=== PATIENT | male | born 1945 | race Caucasian/White ===

== ENCOUNTER 2020-06-18 16:27 | Observation (INO) | payer MEDICARE, OTHER, SELFPAY ==
--- NOTE | 2020-06-18 09:40 | PC.NURSE ---
Pt states pain is 6 all the time, he stated did not want pain medicine
[2020-06-18 17:14] VITALS: BP 135/80; PULSE 61; RESP 18; TEMP 36.5; O2SAT 97; BMI 28.5
--- NOTE | 2020-06-18 17:31 | ECG_ITS ---
APPROVED REPORT Exam: Resting ECG HR:66 bpm ECG Measurements Heart Rate 66 AXES VA 126 P QRSd 140 QRS 88 QT 418 T 57 QTc 438 Conclusion Sinus rhythm with marked sinus arrhythmia in a pattern of bigeminy Right bundle branch block Abnormal ECG Electronically signed by : Gene Gutiérrez, 06/19/2020 13:15:53
[2020-06-18 17:40] LABS: Adenovirus,PCR Not Detected (NotDetected); Bordetella Pertussis Not Detected (NotDetected); Chlamydophila Pneumoniae, PCR Not Detected (NotDetected); Coronavirus 19, PCR Not Detected (NotDetected); Coronavirus 229E Not Detected (NotDetected); Coronavirus NL63 Not Detected (NotDetected); Coronavirus OC43 Not Detected (NotDetected); Coronovirus HKU1,PCR Not Detected (NotDetected); Human Metapneumovirus Not Detected (NotDetected); Influenza A, PCR Not Detected (NotDetected); Influenza AH1, 2009 Not Detected (NotDetected); Influenza AH1, PCR Not Detected (NotDetected); Influenza AH3,PCR Not Detected (NotDetected); Influenza B, PCR Not Detected (NotDetected); Mycoplasma Pneumoniae, PCR Not Detected (NotDetected); Parainfluenza 1, PCR Not Detected (NotDetected); Parainfluenza 2, PCR Not Detected (NotDetected); Parainfluenza 3, PCR Not Detected (NotDetected); Parainfluenza 4, PCR Not Detected (NotDetected); Respiratory Syncytial Virus Not Detected (NotDetected); Rhinovirus/Enterovirus Not Detected (NotDetected)
[2020-06-18 18:09] VITALS: O2SAT 97
--- NOTE | 2020-06-18 18:09 | XR_ITS ---
PROCEDURE: XR CHEST 2V CLINICAL HISTORY: cough COMPARISON: No exams were available for comparison FINDINGS: The cardiomediastinal silhouette and pulmonary vascularity are within normal limits. Right hemidiaphragm is elevated with patchy density in the right lung base which may be related atelectasis or patchy infiltrate. Multiple old left rib fractures. Degenerative changes of the shoulders with postsurgical change of the right shoulder. Bilateral subacromial stenosis. Degenerative changes lumbar spine with ankylosis. Coronary artery stent noted. IMPRESSION: Elevated right hemidiaphragm with right basilar atelectasis and or infiltrate Dictated by: Misha Oreilly MD 06/19/2020 05:38 Misha Oreilly MD in [place] 06/19/2020 05:38
--- NOTE | 2020-06-18 18:09 | XR_ITS ---
PROCEDURE: XR THORACIC SPINE 2V CLINICAL INDICATION: back pain post fall COMPARISON: No exams were available for comparison FINDINGS: Minimal midthoracic curvature convex right. Ankylosis of the mid lower thoracic spine. Moderate patient rotation on the lateral view. There is minimal loss of height of T6 and T7 anteriorly which could be chronic. No obvious fracture or dislocation. Other findings:None. IMPRESSION: Degenerative change, no definite acute finding. Minimal loss of height of T6 and T7 which may be chronic. If pain persists, CT or MRI may provide further evaluation. Dictated by: Misha Oreilly MD 06/19/2020 05:41 Misha Oreilly MD in [place] 06/19/2020 05:41
--- NOTE | 2020-06-18 18:09 | XR_ITS ---
PROCEDURE: XR LUMBAR SPINE 2-3V CLINICAL INDICATION: back pain post fall Low back pain COMPARISON: No exams were available for comparison FINDINGS: Mild lumbar curvature convex right. The lateral view is moderately rotated. Multilevel degenerative disc disease is present with endplate osteophytes. No obvious fracture however, subtle fractures may not be visualized with this technique. Consider follow-up if pain persists. There are multiple injection granulomas along the left iliac area. IMPRESSION: Lumbar spondylosis with scoliosis. No obvious fracture however exam is limited secondary to positioning. Consider follow-up if pain persist. Dictated by: Misha Oreilly MD 06/19/2020 05:36 Misha Oreilly MD in [place] 06/19/2020 05:36
--- NOTE | 2020-06-18 18:16 | XR_ITS ---
PROCEDURE: XR HIP RT 2-3V W/PELVIS CLINICAL INDICATION: PAIN Injury with pain COMPARISON: CR XR HIP LT 2-3V W/PELVIS from 06/18/2020 FINDINGS: There are mild osteoarthritic changes. No acute fracture or dislocation. No lytic or blastic change. There is vascular calcification. Multiple small calcific densities overlie the left hip consistent with injection granulomas. Mild degenerative change right SI joint. IMPRESSION: No acute findings. Dictated by: Misha Oreilly MD 06/19/2020 05:53 Msiha Oreilly MD in [place] 06/19/2020 05:53
[2020-06-18 18:24] LABS: Basophils # 0.1 K/mm3 (0-0.2); Basophils % 0.9 % (0.1-2.0); Eosinophils # 0.1 K/mm3 (0.0-0.4); Eosinophils % 2.1 % (0.1-12.0); Hematocrit 48.7 % (42.0-52.0); Hemoglobin 16.5 g/dL (14.1-18.0); Lymphocytes # 1.1 K/mm3 (0.7-4.5); Lymphocytes % 18.9 % (10-50); Mean Corpuscular Hemoglobin 31.7 pg (27.0-31.2); Mean Corpuscular Volume 93.3 fl (80-94); Mean Platelet Volume 8.1 fl (7.4-10.4); Monocytes # 0.4 K/mm3 (0.1-1.0); Neutrophils # 4.2 K/mm3 (1.8-7.8); Platelet Count 127 K/mm3 (142-424); Red Blood Count 5.22 M/mm3 (4.60-6.20); Red Cell Distribution Width 14.8 % (11.5-17.5); White Blood Count 5.9 K/mm3 (4.8-10.8)
[2020-06-18 18:25] LABS: Chloride 103 mmol/L (98-107); Potassium 4.4 mmoL/L (3.5-5.1); Sodium 137 mmol/L (136-145)
[2020-06-18 18:27] LABS: Blood Urea Nitrogen 24 mg/dl (9-20); Creatinine Clearance Estimated 59 mL/min (50-200); Estimated Glomerular Filt Rate 46 ml/min (>60); GFR (African American) 55 ML/MIN (>60)
[2020-06-18 18:28] LABS: Alanine Aminotransferase 17 U/L (12-78); Albumin Level 4.8 g/dl (3.5-5.0); Albumin/Globulin Ratio 1.7 (1.1-1.8); Alkaline Phosphatase 88 U/L (38-126); Anion Gap 10.4 mEq/L (5-15); Aspartate Amino Transferase 38 U/L (17-59); Bilirubin,Total 1.1 mg/dl (0.2-1.3); Calcium 9.6 mg/dl (8.4-10.2); Carbon Dioxide 28 mmol/L (22.0-30.0); Globulin 2.8 g/dL (1.3-3.2); Glucose 105 mg/dl (74-100); Magnesium 2.1 mg/dl (1.6-2.3); Total Protein,Serum 7.6 g/dl (6.3-8.2)
--- NOTE | 2020-06-18 18:38 | HMH.HP ---
*Admission Date: 06/18/20 *Chief complaint: syncope and back injury *History of present illness: Patient is a 75-year-old white male, well-known to me, presents with severe back pain. He is in the office with his , his daughter, and ambulating with a walker. He is unable to rise from a seated position, has lancinating and severe pain in his back and bilateral hips. Patient has a history of coronary artery disease and congestive heart failure. He is followed by a customer relations coordinator out of the area, he is down about every 6 months. No recent testing has been done. Patient reports several recurrent episodes of syncope with falls. The last episode of syncope happened about a week ago. Patient has sustained multiple falls in his driveway. On one occasion he struck his head rightward. Every time the patient sustains a fall his pain escalates. Patient denies ischemic chest features, sensation of squeezing, nausea or diaphoresis. He does relay that these syncopal episodes come on quickly without warning and leave him momentarily confused after he has fallen. Auscultation of the heart in the office revealed an irregular rhythm with bradycardia. Frequent ectopy and PVCs were noted on the EKG, as well as a right bundle branch block. Cardiogenic syncope is suspected as the etiology of his falls, given their nature. The family is gravely concerned about his progressive debility, especially over the last several weeks since the following episodes have started [facility] History Medical History: Reports:: Anxiety, Asthma, Depression, Hyperlipidemia, Hypertension Denies:: Diabetes Mellitus Type 1, Diabetes Mellitus Type 2 *Have you ever received a pneumonia vaccine?: Yes *Have you received a flu vaccine this season?: Yes Other Surgeries: Yes: Cardiac Catheterization, Coronary Stent - *Social History Last grade of school completed: High school graduate Smoking Status: Former smoker Tobacco Type: cigarettes # Packs/Day (cigarettes): 2 #Yrs smoked (if former smoker): 40 Alcohol Intake: never *Occupational Status:: retired Household Members: spouse *Travel in the last 8 weeks: None - Psychiatric History Pschychiatric History:: Reports:: Anxiety, Depression Family Hx:: Cancer, Coronary Artery Disease, Heart Attack, Stroke Review of Systems - Constitutional Reports body ache(s), Reports fatigue, Reports lack of energy, Reports malaise, Reports weakness - Eyes Denies pain - ENT Reports abnormal hearing, Reports poor balance - *Cardiovascular Reports leg pain with activity, Reports irregular heart rhythm, Reports fainting - *Respiratory Reports change in phlegm color, Reports chest congestion, Reports cough - *Gastrointestinal Denies abdominal pain - *Genitourinary Denies painful urination - *Musculoskeletal Reports abnormal walking, Reports joint pain, Reports decreased muscle mass, Reports back pain, Reports joint swelling, Reports limited joint movement, Reports muscle weakness, Reports body aches, Reports radiating pain into limb, Reports stiffness - Integumentary/Breasts Denies yellowing of the skin - *Neurologic Reports abnormal walking, Reports confusion, Reports frequent falls, Reports lack of coordination, Reports fainting, Reports weakness, Denies abnormal speech - Psychiatric Reports anxiety, Reports behavioral changes, Reports depression - Endocrine Reports rapid, pounding, or irregular heartbeat - Hematologic/Lymphatic Denies easy bruising - Allergic/Immunologic Denies hives Meds Home Medications Medication Instructions Recorded Confirmed Type albuterol sulfate 90 mcg/actuation 2 puff INHALATION Q4-6H PRN 06/18/20 06/18/20 History aerosol inhaler amlodipine 10 mg tablet 10 mg PO DAILY 06/18/20 06/18/20 History aspirin 81 mg tablet,delayed 81 mg PO DAILY 06/18/20 06/18/20 History release cyclobenzaprine 10 mg tablet 10 mg PO TID 06/18/20 06/18/20 History fluoxetine 20 mg capsule 20 mg PO DAILY 06/18
--- NOTE | 2020-06-18 18:42 | CT_ITS ---
PROCEDURE: CT HEAD/BRAIN WO CON CLINICAL INDICATION: fall with head injury Head injury with headache/pain, contusion, abrasion or hematoma COMPARISON: No exams were available for comparison TECHNIQUE: Axial images obtained. All CT scans at the facility use one or more dose reduction, viz: automated exposure control, ma/kV adjustment per patient size (including targeted exams where dose is matched to indication, i.e. head), or iterative reconstruction technique. FINDINGS: No midline shift, mass effect, intracranial hemorrhage, hydrocephalus, or extra-axial fluid collection is evident. There is generalized atrophy with hypoattenuation of the periventricular white matter consistent with microangiopathic changes. The calvarium has an unremarkable appearance. No mastoid effusion. No sinus air-fluid level. IMPRESSION: No acute intracranial finding Dictated by: Misha Oreilly MD 06/19/2020 06:38 Misha Oreilly MD in [place] 06/19/2020 06:38
[2020-06-18 18:59] LABS: Thyroid Stimulating Hormone 2.36 uIU/mL (0.465-4.68)
[2020-06-18 19:03] LABS: NT Pro Brain Natriuretic Pep. 634 pg/mL (0-450)
[2020-06-18 19:07] LABS: Troponin I < 0.01 ng/ml (0.00-0.034)
[2020-06-18 20:00] VITALS: BP 143/76; PULSE 63; RESP 18; TEMP 36.7; O2SAT 93
--- NOTE | 2020-06-18 23:20 | PC.NURSE ---
Pt states that pain is 6 all the time and pt stated did not want pain medication because when I lay a certain way it feels ok .
[2020-06-19] VITALS: BP 135/55; PULSE 53; RESP 18; TEMP 36.6; O2SAT 96
--- NOTE | 2020-06-19 | CA_ITS ---
APPROVED REPORT Exam: Pharmacologic Technologist: Nargis Mccall Ht: 6 ft 1 in Wt: 216 lbs BSA: 2.22 m2 HR: 55 bpm BP: 168/72 mmHg Indications: Syncope, History of CAD Medical History Medications: Amlodipine,,,,, Irbesartan,,,,, Hydralazine,,,,, Aspirin,,,,, Albuterol,,,,, Fluoxetine,,,,, Cyclobenzaprine,,,,, Stress Test Details Test: LEXISCAN HR Resting HR: 59 bpm Max Heart Rate (APMHR): 145.225569 bpm Max HR Achieved: 87 bpm Target HR (85% APMHR): 123.823016 bpm % of APMHR: 60.00 Recovery HR: 63 bpm BP Resting BP: 168.0/72.0 mmHg Max BP: 168.0/72.0 mmHg Recovery BP: 147.0/78.0 mmHg ECG Resting ECG: Sinus rhythm, Ventricular bigeminy, Right bundle branch block Clinical Exercise duration: 04:03 min Highest Stage Achieved: Stress ECG Conclusion Symptoms: Shortness of air, nausea, malaise. No chest pain. Arrhythmias/Ectopy: Frequent PVCs with periods of bigeminy and trigeminy ST-T Changes: No significant changes. Conclusion: Unremarkable Lexiscan stress. Myoview images reported separately. Electronically signed by : Robert Reynolds, 06/21/2020 08:33:05
[2020-06-19 04:00] VITALS: BP 148/78; PULSE 59; RESP 18; TEMP 36.4; O2SAT 95
[2020-06-19 05:05] VITALS: BMI 28.6
--- NOTE | 2020-06-19 07:14 | INFXCTL.NOTE ---
PT slept comfortably thru the night with cardiac events throughout the night. Patient has cardiac consult and has been NPO since midnight.
[2020-06-19 08:00] VITALS: BP 135/55; PULSE 63; PULSE 70; RESP 18; TEMP 36.5; O2SAT 95
--- NOTE | 2020-06-19 08:57 | NM_ITS ---
APPROVED REPORT Exam: Nuclear Stress Test Indication: CAD, HTN, C.P., SOB, SYNCOPE Patient Location: Outpatient Stress Tech: Nargiselias Mccall [place] Tech:Raine YARON Rubio RT (R)(N)(M) Ht: 6 ft 1 in Wt: 200 lbs Bra Size: 55 HR: 55 bpm BP: 168/72 mmHg BSA: 2.15 m2 BMI: 26.3 Procedure: Patient received a 0.4 mg of intravenous Lexiscan, resting heart rate 55 bpm, resting blood pressure 168/72 mmHg, with Lexiscan maximum heart rate achived was 84 bpm which is % of the maximum predicted heart rate and blood pressure was 141/51 mmHg. With Lexiscan, patient denied any complaint of chest pain. SOA Cardiac Stress and Resting SPECT Images: Cardiac Stress and Resting SPECT images were obtained using technetium 99m Myoview 31.8 mCi stress and 9.99 mCi at rest. Low EF of 40% with global hypokinesia No fixed or reversible defects Conclusion: Low EF of 40% with global hypokinesia No ischemic changes Electronically signed by : Misha Oreilly MD 06/19/2020 17:06:13
--- NOTE | 2020-06-19 08:58 | HMH.ACPN2 ---
Internal Medicine - PN: Subj *Date: 06/19/20 *Time: 11:39 Interval history: 75 YOM sitting up in bed, denies CP or SOA during night. He denies dizziness or vision disturbances. He does report ongoing lower back pain and states he has never had a MRI. Exam Vital signs and Labs for Last 24 Hours: Temp Pulse Resp BP Pulse Ox 97.6 F 59 L 18 148/78 H 95 06/19/20 04:00 06/19/20 04:00 06/19/20 04:00 06/19/20 04:00 06/19/20 04:00 Laboratory Results - last 24 hr 06/18/20 17:30: Chlamy pneumoniae PCR Not detected, Adenovirus (PCR) Not detected, B. pertussis DNA (PCR) Not detected, Coronavirus OC43 (PCR) Not detected, Coronavirus HKU1 (PCR) Not detected, Coronavirus 229E (PCR) Not detected, SARS-CoV-2 (PCR) Not detected, Coronavirus NL63 (PCR) Not detected, Human Metapneumovir PCR Not detected, Influenza A (H1) PCR Not detected, Influ A (H1N1/09) PCR Not detected, Influenza A (H3) PCR Not detected, Influenza Type A (PCR) Not detected, Influenza Type B (PCR) Not detected, M. pneumoniae (PCR) Not detected, Parainfluenza 1 (PCR) Not detected, Parainfluenza 2 (PCR) Not detected, Parainfluenza 3 (PCR) Not detected, Parainfluenza 4 (PCR) Not detected, RSV (PCR) Not detected, Entero/Rhino (PCR) Not detected 06/18/20 17:30: WBC 5.9, RBC 5.22, Hgb 16.5, Hct 48.7, MCV 93.3, MCH 31.7 H, MCHC 34.0, RDW 14.8, Plt Count 127 L, MPV 8.1, Neut % (Auto) 72.0, Lymph % (Auto) 18.9, [place] % (Auto) 6.0, Eos % (Auto) 2.1, Baso % (Auto) 0.9, Neut # (Auto) 4.2, Lymph # (Auto) 1.1, [place] # (Auto) 0.4, Eos # (Auto) 0.1, Baso # (Auto) 0.1 04/06/21 17:30: Sodium 137, Potassium 4.4, Chloride 103, Carbon Dioxide 28, Anion Gap 10.4, BUN 24 H, Creatinine 1.50 H, Estimated Creat Clear 59, Estimated GFR 46 L, Est GFR ( Amer) 55 L, Glucose 105 H, Calcium 9.6, Magnesium 2.1, Total Bilirubin 1.1, AST 38, ALT 17, Alkaline Phosphatase 88, Total Protein 7.6, Albumin 4.8, Globulin 2.8, Albumin/Globulin Ratio 1.7, TSH 2.36 06/18/20 17:30: Troponin I < 0.01, NT-Pro-B Natriuret Pep 634 H I & O for Last 24 hours: Intake & Output 06/16/20 06/17/20 06/18/20 06/19/20 23:59 23:59 23:59 23:59 Intake Total 0 / 0 Balance 0 / 0 Weight 216 lb 216 lb - Constitutional no acute distress - *Routine HEENT Exam Head: Present: normocephalic Eye: Present: EOMI ENT: Present: mucous membranes moist - *Routine Neck Exam Present: trachea midline. Absent: tracheal deviation - *Routine Respiratory Exam Present: CTA bilaterally. Absent: accessory muscle use - *Routine Cardiovascular Exam Present: murmur, bradycardia - *Routine Abdominal Exam Present: soft, normoactive bowel sounds. Absent: tenderness, rigid - *Routine Extremities Exam Present: full ROM, pulses intact. Absent: cyanosis, clubbing, calf tenderness - *Routine Skin Exam Present: intact, dry, warm. Absent: cyanosis, erythema - *Routine Neurological Exam Present: alert, oriented X3. Absent: pronator drift - Routine Psychiatric Exam Present: normal affect, normal thought process. Absent: auditory hallucinations, visual hallucinations Assessment and Plan (1) Syncope Status: Acute Qualifiers: Encounter type: initial encounter Category: Medical Code(s): R55 - Syncope and collapse (2) Coronary artery disease Status: Chronic Qualifiers: Coronary Disease-Associated Artery/Lesion type: [place] artery Category: Medical Code(s): I25.10 - Atherosclerotic heart disease of [place] coronary artery without angina pectoris (3) Essential hypertension Status: Chronic Category: Medical Code(s): I10 - Essential (primary) hypertension (4) Back pain Status: Acute Qualifiers: Back pain location: low back pain Chronicity: acute Back pain laterality: midline Sciatica presence: unspecified whether sciatica present Qualified Code(s): M54.5 - Low back pain Category: Medical Code(s): M54.9 - Dorsalgia, unspecified (5) Erosive osteoarthritis Status: Ch
--- NOTE | 2020-06-19 09:07 | P.CONPHA_ITS ---
[facility] Pharmacy VTE Monitoring - Patient Demographics Admission date: 06/19/20 Report Date: 06/19/20 Time: 09:07 Allergies/Adverse Reactions: Patient Allergies Penicillins Adverse Reaction (Unknown, Verified 06/18/20 14:27) Height: 1.85 m Weight: 97.976 kg Patient Problems: Current Active Problems Syncope (Acute) Coronary artery disease (Chronic) Essential hypertension (Chronic) Back pain (Acute) Erosive osteoarthritis (Chronic) Head contusion (Acute) Weakness (Acute) Depression (Chronic) History of renal cell cancer (Acute) - VTE Risk Labs: VTE Related Lab Results Hgb 16.5 g/dL (14.1-18.0) 06/18/20 17:30 Hct 48.7 % (42.0-52.0) 06/18/20 17:30 Plt Count 127 K/mm3 (142-424) L 06/18/20 17:30 BUN 24 mg/dl (9-20) H 06/18/20 17:30 Creatinine 1.50 mg/dl (0.66-1.25) H 06/18/20 17:30 Estimated Creat Clear 59 mL/min (50-200) 06/18/20 17:30 - Prophylaxis Types of VTE Prophylaxis: TEDS Knee High (BLANKA HOSE ORDER PLACED) Location of Applied Device: Not Applicable
--- NOTE | 2020-06-19 09:28 | HMH.PTEV ---
Physical Therapy Evaluation Rehab PT IP Evaluation Start: 06/18/20 18:24 Freq: ONCE Status: Active Protocol: Document 06/19/20 09:18 DEB (Rec: 06/19/20 09:27 DEB [id number]) Subjective/History History History Patient is a 75-year-old white male, well-known to me, presents with severe back pain . He is in the office with his , his daughter, and ambulating with a walker. He is unable to rise from a seated position, has lancinating and severe pain in his back and bilateral hips. Patient has a history of coronary artery disease and congestive heart failure. He is followed by a correctional classification counselor out of the area, he is down about every 6 months. No recent testing has been done. Patient reports several recurrent episodes of syncope with falls. The last episode of syncope happened about a week ago. Patient has sustained multiple falls in his driveway. On one occasion he struck his head rightward. Every time the patient sustains a fall his pain escalates. Patient denies ischemic chest features, sensation of squeezing, nausea or diaphoresis. He does relay that these syncopal episodes come on quickly without warning and leave him momentarily confused after he has fallen. Auscultation of the heart in the office revealed an irregular rhythm with bradycardia. Frequent ectopy and PVCs were noted on the EKG , as well as a right bundle branch block. Cardiogenic syncope is suspected as the etiology of his falls, given their nature. The family is
--- NOTE | 2020-06-19 09:37 | HMH.CNCARD ---
History of Present Illness Consult date: 06/19/20 Requesting physician: Jacob Salas Chief complaint: falling History of present illness: This is a 75-year-old white gentleman who was admitted to the hospital from his primary care provider due to severe back pain and episodes of syncope. The patient went to see Dr. Salas yesterday in his office with complaints of severe back pain and was ambulating with a walker. The patient was unable to really change his position without having severe pain in his back and his bilateral hips. He had also been reporting recurrent falls. The patient states that he has fallen 3 times in the last 3 months. He states that he does not really know what happens when he falls. He kind of just wakes up on the ground and does not really remember how it happens. He denies having any chest pain or pressure. No shortness of breath or edema prior to syncope. No fever, chills, nausea, vomiting, diarrhea, PND orthopnea. No dizziness or lightheadedness before having these episodes of falling. He states he is not really even sure if he passes out because he does not know what happens. He says he just wakes up and does not remember how he got where he was going or what he was doing. He states he is always momentarily confused when he gets back up. He does have a history of coronary artery disease and congestive heart failure and follows with a produce manager out of the area. He denies having any recent testing done. While he was in Dr. Salas's office yesterday auscultation of the heart indicated that he had an irregular heart rhythm and the patient was referred for admission to the hospital. This morning he still denies any chest pain or pressure. 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 He states that this is mild and does not occur frequently. [facility] History I have reviewed the patient's past medical history: Yes Medical History: Reports:: Anxiety, Asthma, Congestive Heart Failure, Coronary Artery Disease, Depression, Hyperlipidemia, Hypertension Denies:: Diabetes Mellitus Type 1, Diabetes Mellitus Type 2 *Have you ever received a pneumonia vaccine?: Yes *Have you received a flu vaccine this season?: Yes Other Surgeries: Yes: Cardiac Catheterization, Coronary Stent - *Social History Last grade of school completed: High school graduate Smoking Status: Former smoker Tobacco Type: cigarettes # Packs/Day (cigarettes): 2 #Yrs smoked (if former smoker): 40 Alcohol Intake: never *Occupational Status:: employed Household Members: spouse *Travel in the last 8 weeks: None - Psychiatric History Pschychiatric History:: Reports:: Anxiety, Depression Family Hx:: Cancer, Coronary Artery Disease, Heart Attack, Stroke Meds Home Medications Medication Instructions Recorded Confirmed Type albuterol sulfate 90 mcg/actuation 2 puff INHALATION Q4-6H PRN 06/18/20 06/18/20 History aerosol inhaler amlodipine 10 mg tablet 10 mg PO DAILY 06/18/20 06/18/20 History aspirin 81 mg tablet,delayed 81 mg PO DAILY 06/18/20 06/18/20 History release cyclobenzaprine 10 mg tablet 10 mg PO TIDP PRN 06/18/20 06/19/20 History fluoxetine 20 mg capsule 20 mg PO DAILY 06/18/20 06/18/20 History hydralazine 50 mg tablet 50 mg PO DAILY tab 06/18/20 06/18/20 History Losartan Potassium 100 mg PO DAILY 06/19/20 06/19/20 History Allergies Allergy/AdvReac Type Severity Reaction Status Date / Time Penicillins AdvReac Unknown Verified 06/18/20 14:27 Exam Vital signs and Labs for Last 24 Hours: Temp Pulse Resp BP Pulse Ox 97.7 F 63 18 135/55 L 95 06/19/20 08:00 06/19/20 08:00 06/19/20 08:00 06/19/20 08:00 06/19/20 08:00 Laboratory Results - last 24 hr 06/18/20 17:30: Chlamy pneumoniae PCR Not detected, Adenovirus (PCR) Not detected, B. pertussis DNA (PCR) Not detected, Coronavirus OC43 (PCR) Not detected, Coronavirus HKU1 (PCR) Not detected, Coronavirus 229E (P
--- NOTE | 2020-06-19 09:42 | SW/DCPLANNER ---
Addendum entered by Aleshia Rebuck 06/20/20 14:39: Francia with [facility] has stated that services will begin tomorrow for this patient. Addendum entered by Aleshia Rebuck 06/20/20 13:59: Patient will discharge home today. Patient information has been faxed to [facility]. I will follow up with [facility] once patient information/order is reviewed. Addendum entered by Aleshia Rebuck 06/20/20 09:36: Patient will have loop recorder placement today and discharge home this afternoon pending no setbacks. I will set patient up with home health at time of discharge. Original Note: I have spoke with this patients regarding discharge plans for this patient. stated that she intends on this patient returning home at time of discharge. is not interested in placement for patient. I did discuss home health services and is interested in these services at time of discharge. Discharge date is unknown at this time: Cardiology consult today. I will continue to follow up with this patients family and MD.
--- NOTE | 2020-06-19 10:48 | PC.NURSE ---
New IV site started, #20 in Left AC, tolerated well.
[2020-06-19 13:52] VITALS: BMI 28.6
--- NOTE | 2020-06-19 14:13 | PC.NURSE ---
Addendum entered by Tigist Segura RN 06/19/20 14:14: Pt left floor for test at 11:25 Original Note: Leaving unit for Lexiscan (stress) test
--- NOTE | 2020-06-19 15:30 | PC.NURSE ---
Pt back to unit from [facility]
[2020-06-19 16:00] VITALS: BP 126/77; PULSE 76; RESP 18; TEMP 36.8; O2SAT 95
--- NOTE | 2020-06-19 19:06 | CA_ITS ---
APPROVED REPORT Hat Checker: NOVA Laterality: Bilateral Study Quality: Technically Limited Indications: syncope Doppler Spectral Velocity Analysis ECA (R) 84.10/5.80 cm/s ECA (L) 95.40/15.40 cm/s dICA (R) 32.70/9.60 cm/s dICA (L) 88.60/22.20 cm/s Antonio (R) 42.40/11.60 cm/s Antonio (L) 76.10/16.40 cm/s pICA (R) 48.20/9.60 cm/s pICA (L) 79.00/6.70 cm/s dCCA (R) 56.10/9.10 cm/s dCCA (L) 81.90/13.50 cm/s pCCA (R) 58.80/9.10 cm/s pCCA (L) 126.20/14.40 cm/s Vert (R) 40.50/16.00 cm/s Vert (L) 31.80/16.40 cm/s ICA/CCA 0.85 ICA/CCA 1.07 Findings Duplex evaluation demonstrates stenosis of the right proximal internal carotid artery <20% with PSV <140 cm/sec, EDV <100 cm/sec, and IC/CC Ratio <4.0.Duplex evaluation demonstrates stenosis of the left proximal internal carotid artery in the range of 20-49% with PSV <140 cm/sec, EDV <100 cm/sec, and IC/CC Ratio <4.0. Duplex evaluation demonstrates antegrade flow of the bilateral Vertebral Arteries. Mild heterogenous plaque in the proximal CCA. Conclusion Duplex evaluation demonstrates stenosis of the right proximal internal carotid artery <20% with PSV <140 cm/sec, EDV <100 cm/sec, and IC/CC Ratio <4.0.Duplex evaluation demonstrates stenosis of the left proximal internal carotid artery in the range of 20-49% with PSV <140 cm/sec, EDV <100 cm/sec, and IC/CC Ratio <4.0. Duplex evaluation demonstrates antegrade flow of the bilateral Vertebral Arteries. Mild heterogenous plaque in the proximal CCA. Electronically signed by : Misha Oreilly MD 06/19/2020 17:28:39
[2020-06-19 20:00] VITALS: BP 155/88; PULSE 65; PULSE 70; RESP 19; TEMP 36.6; O2SAT 96
[2020-06-19 23:51] VITALS: BP 149/81; PULSE 63; RESP 22; TEMP 36.6; O2SAT 94
[2020-06-20] VITALS: PULSE 58
[2020-06-20 04:00] VITALS: BP 152/54; PULSE 65; PULSE 80; RESP 21; TEMP 36.4; O2SAT 94
[2020-06-20 05:13] VITALS: BMI 28.8
--- NOTE | 2020-06-20 06:33 | PC.NURSE ---
Pt has rested well this shift. No complaints stated. Was up to wheelchair early in shift. Tolerated well. VSS. Pt is bigeminy on telemetry. He remains on RA. Lungs noted to have rhonchi and scattered wheezing. BS active. Last BM 06/19. Medications administered per may. Call light within reach. No other concerns. Will continue to monitor.
[2020-06-20 06:54] LABS: Basophils # 0.1 K/mm3 (0-0.2); Basophils % 1.2 % (0.1-2.0); Eosinophils # 0.2 K/mm3 (0.0-0.4); Eosinophils % 4.2 % (0.1-12.0); Hematocrit 44.8 % (42.0-52.0); Hemoglobin 15.4 g/dL (14.1-18.0); Lymphocytes # 1.2 K/mm3 (0.7-4.5); Lymphocytes % 23.2 % (10-50); Mean Corpuscular HGB Conc 34.5 g/dL (31.8-35.4); Mean Corpuscular Hemoglobin 31.4 pg (27.0-31.2); Mean Corpuscular Volume 91.1 fl (80-94); Monocytes # 0.3 K/mm3 (0.1-1.0); Neutrophils # 3.2 K/mm3 (1.8-7.8); Neutrophils % 64.3 % (37.0-80.0); Platelet Count 84 K/mm3 (142-424); Red Blood Count 4.91 M/mm3 (4.60-6.20); Red Cell Distribution Width 14.6 % (11.5-17.5); White Blood Count 4.9 K/mm3 (4.8-10.8)
[2020-06-20 06:58] LABS: Chloride 103 mmol/L (98-107); Potassium 4.2 mmoL/L (3.5-5.1); Sodium 135 mmol/L (136-145)
[2020-06-20 07:01] LABS: Anion Gap 9.2 mEq/L (5-15); Blood Urea Nitrogen 24 mg/dl (9-20); Calcium 8.7 mg/dl (8.4-10.2); Carbon Dioxide 27 mmol/L (22.0-30.0); Chol/HDL Ratio 2.3 (1-3.5); Cholesterol 93 mg/dl (140-200); Creatinine Clearance Estimated 69 mL/min (50-200); Estimated Glomerular Filt Rate 54 ml/min (>60); GFR (African American) 65 ML/MIN (>60); Glucose 153 mg/dl (74-100); HDL Cholesterol 41 mg/dl (40-60); Triglycerides 58 mg/dl (30-150); VLDL Cholesterol 12 mg/dL (0-40)
[2020-06-20 08:00] VITALS: PULSE 50
[2020-06-20 08:52] VITALS: BP 149/70; PULSE 56; RESP 16; TEMP 36.8; O2SAT 94
--- NOTE | 2020-06-20 08:56 | HMH.PNCARD ---
Subjective Date: 06/20/20 Time: 08:30 Principal diagnosis: syncope Interval history: This is a 75-year-old white gentleman who was admitted to the hospital from his primary care provider's office secondary to severe back pain and episodes of syncope. The patient reports no syncope since being in the hospital. He denies any chest pain or pressure. He denies any shortness of breath or edema. He denies any fever, chills, nausea, vomiting, diarrhea, PND or orthopnea. He denies any dizziness or lightheadedness. The patient states that he is feeling very well and is ready to go home today. He did undergo Myoview stress testing yesterday which showed no ischemia. Exam Vital signs and Labs for Last 24 Hours: Temp Pulse Resp BP Pulse Ox 97.5 F L 65 21 152/54 H 94 L 06/20/20 04:00 06/20/20 04:00 06/20/20 04:00 06/20/20 04:00 06/20/20 04:00 Laboratory Results - last 24 hr 06/20/20 06:39: WBC 4.9, RBC 4.91, Hgb 15.4, Hct 44.8, MCV 91.1, MCH 31.4 H, MCHC 34.5, RDW 14.6, Plt Count 84 L D, MPV 9.0, Neut % (Auto) 64.3, Lymph % (Auto) 23.2, [place] % (Auto) 7.0, Eos % (Auto) 4.2, Baso % (Auto) 1.2, Neut # (Auto) 3.2, Lymph # (Auto) 1.2, [place] # (Auto) 0.3, Eos # (Auto) 0.2, Baso # (Auto) 0.1 06/20/20 06:39: Sodium 135 L, Potassium 4.2, Chloride 103, Carbon Dioxide 27, Anion Gap 9.2, BUN 24 H, Creatinine 1.30 H, Estimated Creat Clear 69, Estimated GFR 54 L, Est GFR ( Amer) 65, Glucose 153 H, Calcium 8.7, Triglycerides 58, Cholesterol 93 L, LDL Cholesterol Direct 31.20 L, VLDL Cholesterol 12, HDL Cholesterol 41, Cholesterol/HDL Ratio 2.3 I & O for Last 24 hours: Intake & Output 06/17/20 06/18/20 06/19/2008/21 23:59 23:59 23:59 23:59 Intake Total 480 / 480 Balance 480 / 480 Weight 216 lb 216 lb 0.848 oz 218 lb Narrative: Carotid ultrasound shows less than 20% stenosis of the right internal carotid artery and 20 to 49% stenosis of the left internal carotid artery. Myoview stress test shows: Low EF of 40% with global hypokinesia No ischemic changes Echocardiogram shows: EF greater than 55% with mild to moderate tricuspid regurgitation and mild mitral regurgitation. - Constitutional no acute distress, average body habitus - *Routine HEENT Exam Head: Present: normocephalic, atraumatic Eye: Present: EOMI, PERRL ENT: Present: mucous membranes moist - *Routine Neck Exam Present: supple, full ROM, normal carotid upstroke. Absent: JVD, carotid bruit, lymphadenopathy - *Routine Respiratory Exam Present: CTA bilaterally - *Routine Cardiovascular Exam Present: RRR, Normal S1, Normal S2, murmur - *Routine Abdominal Exam Present: soft, normoactive bowel sounds. Absent: tenderness, distended - *Routine Extremities Exam Present: full ROM, pulses intact, normal capillary refill. Absent: cyanosis, clubbing, edema - *Routine Skin Exam Present: intact, warm. Absent: erythema, rash - *Routine Neurological Exam Present: alert, oriented X3, CN II-XII intact. Absent: sensory deficit, motor deficit Progress Note: A&P (1) Syncope Status: Acute (2) Coronary artery disease Status: Chronic (3) Essential hypertension Status: Chronic (4) Back pain Status: Acute (5) Erosive osteoarthritis Status: Chronic (6) Head contusion Status: Acute (7) Weakness Status: Acute (8) Depression Status: Chronic (9) History of renal cell cancer Status: Acute (10) Carotid artery stenosis Status: Chronic Assessment and Plan for All Diagnoses:: Plan: 1. The patient was mated to the hospital by his primary care provider for falls and syncope. Cardiology was consulted. The patient did undergo a Lexiscan Myoview stress testing yesterday which showed no ischemia. The Myoview did show a low EF at 40%. However his echocardiogram shows an EF greater than 55% and if anything the patient is a little bit hyperdynamic. Because of his ventricular ectopy this may account to why his EF
[2020-06-20 10:11] VITALS: BP 144/80; PULSE 64; RESP 20; O2SAT 95
--- NOTE | 2020-06-20 11:17 | PC.NURSE ---
CARPET [employer]ER HELPER STAFF PLACED LOOP RECORDER. PT APPEARS TO TOLERATE WELL. DRESSING IS CDI.
--- NOTE | 2020-06-20 11:48 | HMH.LOOP ---
[facility] Loop Recorder Date: 06/20/20 Time: 10:00 Procedure Performed:: Loop recorder insertion Indication:: Syncope Technique:: Patient was brought to the cardiac Rag Cutting Machine Feeder. After informed consent obtained, 1% lidocaine with epinephrine was used to anesthetize the site along the left anterior aspect of the chest near the sternal border. Using the preformed scalpel, an incision was made and using the supplied preloaded apparatus, the loop recorder was placed subcutaneously without difficulty. Following the deployment of the loop recorder interrogation of the device was performed to ensure appropriate voltage was being detected. Once this was verified, Steri-Strips were placed over the incision and the patient was prepped to discharge home. Patient tolerated the procedure well with minimal discomfort. Impression:: Successful implantation of loop recorder Serial Number:: [employer] Lux-[id number] Serial #[id number] Plan:: Routine postop care
--- NOTE | 2020-06-20 13:28 | HMH.DCSUM ---
General - General Admission date:: 06/18/20 Discharge date: 06/20/20 HPI HPI: Patient is a 75-year-old white male, well-known to me, presents with severe back pain. He is in the office with his , his daughter, and ambulating with a walker. He is unable to rise from a seated position, has lancinating and severe pain in his back and bilateral hips. Patient has a history of coronary artery disease and congestive heart failure. He is followed by a work force advisor out of the area, he is down about every 6 months. No recent testing has been done. Patient reports several recurrent episodes of syncope with falls. The last episode of syncope happened about a week ago. Patient has sustained multiple falls in his driveway. On one occasion he struck his head rightward. Every time the patient sustains a fall his pain escalates. Patient denies ischemic chest features, sensation of squeezing, nausea or diaphoresis. He does relay that these syncopal episodes come on quickly without warning and leave him momentarily confused after he has fallen. Auscultation of the heart in the office revealed an irregular rhythm with bradycardia. Frequent ectopy and PVCs were noted on the EKG, as well as a right bundle branch block. Cardiogenic syncope is suspected as the etiology of his falls, given their nature. The family is gravely concerned about his progressive debility, especially over the last several weeks since the following episodes have started Hospital Course Hospital Course: Laboratory Tests 06/18/20 06/18/20 06/18/20 17:30 17:30 17:30 WBC 5.9 RBC 5.22 Hgb 16.5 Hct 48.7 MCV 93.3 MCH 31.7 H MCHC 34.0 RDW 14.8 Plt Count 127 L MPV 8.1 Neut % (Auto) 72.0 Lymph % (Auto) 18.9 [place] % (Auto) 6.0 Eos % (Auto) 2.1 Baso % (Auto) 0.9 Neut # (Auto) 4.2 Lymph # (Auto) 1.1 [place] # (Auto) 0.4 Eos # (Auto) 0.1 Baso # (Auto) 0.1 Sodium 137 Potassium 4.4 Chloride 103 Carbon Dioxide 28 Anion Gap 10.4 BUN 24 H Creatinine 1.50 H Estimated Creat Clear 59 Estimated GFR 46 L Est GFR ( Amer) 55 L Glucose 105 H Calcium 9.6 Magnesium 2.1 Total Bilirubin 1.1 AST 38 ALT 17 Alkaline Phosphatase 88 Troponin I NT-Pro-B Natriuret Pep Total Protein 7.6 Albumin 4.8 Globulin 2.8 Albumin/Globulin Ratio 1.7 Triglycerides Cholesterol LDL Cholesterol Direct VLDL Cholesterol HDL Cholesterol Cholesterol/HDL Ratio TSH 2.36 Chlamy pneumoniae PCR Not detected Adenovirus (PCR) Not detected B. pertussis DNA (PCR) Not detected Coronavirus OC43 (PCR) Not detected Coronavirus HKU1 (PCR) Not detected Coronavirus 229E (PCR) Not detected SARS-CoV-2 (PCR) Not detected Coronavirus NL63 (PCR) Not detected Human Metapneumovir PCR Not detected Influenza A (H1) PCR Not detected Influ A (H1N1/09) PCR Not detected Influenza A (H3) PCR Not detected Influenza Type A (PCR) Not detected Influenza Type B (PCR) Not detected M. pneumoniae (PCR) Not detected Parainfluenza 1 (PCR) Not detected Parainfluenza 2 (PCR) Not detected Parainfluenza 3 (PCR) Not detected Parainfluenza 4 (PCR) Not detected RSV (PCR) Not detected Entero/Rhino (PCR) Not detected 06/18/20 06/20/20 06/20/20 17:30 06:39 06:39 WBC 4.9 RBC 4.91 Hgb 15.4 Hct 44.8 MCV 91.1 MCH 31.4 H MCHC 34.5 RDW 14.6 Plt Count 84 L D MPV 9.0 Neut % (Auto) 64.3 Lymph % (Auto) 23.2 [place] % (Auto) 7.0 Eos % (Auto) 4.2 Baso % (Auto) 1.2 Neut # (Auto) 3.2 Lymph # (Auto) 1.2 [place] # (Auto) 0.3 Eos # (Auto) 0.2 Baso # (Auto) 0.1 Sodium 135 L Potassium 4.2 Chloride 103 Carbon Dioxide 27 Anion Gap 9.2 BUN 24 H Creatinine 1.30 H Estimated Creat Clear 69 Estimated GFR 54 L Est GFR ( Amer) 65
== END 2020-06-20 14:17 | disposition home or self-care (01) ==
PROVIDERS: Internal Medicine; Nurse Practitioner Family; Admitting Provider Family Medicine; PCP Family Medicine; Visit Provider Family Medicine
DX: R55 Syncope and collapse (principal); I25.10 Atherosclerotic heart disease of native coronary artery without angina pectoris; I50.9 Heart failure, unspecified; M79.606 Pain in leg, unspecified; M54.9 Dorsalgia, unspecified; R29.6 Repeated falls; Z88.0 Allergy status to penicillin; J45.909 Unspecified asthma, uncomplicated; Z95.5 Presence of coronary angioplasty implant and graft; I11.0 Hypertensive heart disease with heart failure; E78.5 Hyperlipidemia, unspecified; Z79.82 Long term (current) use of aspirin
CPT/HCPCS: 33285; 70450; 71046; 72070; 72100; 73502; 78452; 80048; 80053; 80061; 83735; 83880; 84443; 84484; 85025; 87581; 87633; 87798; 93005; 93017; 93306; 93880; 97116; 97161; A9502; G0378; J1956; J2785

== ENCOUNTER → 2020-06-28 13:50 | Outpatient (CLI) | payer MEDICARE, OTHER, SELFPAY ==
--- NOTE | 2020-06-28 13:51 | NM_ITS ---
PROCEDURE: NM PUL VENT AND PERFUSE CLINICAL INDICATION: mildly dilated RV Cardiomegaly, shortness of breath COMPARISON: CR XR CHEST 2V from 06/28/2020 TECHNIQUE: Dose 36.5 mCi technetium DTPA and 7.48 mCi technetium IV FINDINGS: Right hemidiaphragm is elevated as noted on recent radiograph. No perfusion defects are apparent.. There is clumping of the radiopharmaceutical centrally on the ventilation images with scattered subsegmental ventilation defects. IMPRESSION: 1. Low probability for pulmonary embolus. 2. Central clumping of the radiopharmaceutical with scattered subsegmental ventilation defects which may be seen with small airway disease/COPD Dictated by: Misha Oreilly MD 06/28/2020 15:50 Misha Oreilly MD in [place] 06/28/2020 15:50
--- NOTE | 2020-06-28 15:12 | XR_ITS ---
PROCEDURE: XR CHEST 2V CLINICAL HISTORY: S/P V.Q. SCAN, CARDIOMEGALY, SOB COMPARISON: CR XR CHEST 2V from 06/18/2020 FINDINGS: Normal heart size. Loop recorder device is present overlying the left paracentral region of the heart. The right hemidiaphragm is elevated with mild right basilar atelectatic changes. The remaining lungs are clear. No acute bony anomaly. Postsurgical changes right shoulder. Bilateral subacromial stenosis. There are old left-sided rib fractures. IMPRESSION: Elevated right hemidiaphragm with right basilar atelectatic changes.. No change with no acute finding. Interval placement loop recorder device Dictated by: Misha Oreilly MD 06/28/2020 17:29 Misha Oreilly MD in [place] 06/28/2020 17:29
== END ==
PROVIDERS: PCP Family Medicine; Visit Provider Internal Medicine Cardiovascular Disease
DX: I51.7 Cardiomegaly (principal)
CPT/HCPCS: 71046; 78582; A9540; A9567

== ENCOUNTER 2020-07-12 12:50 | Inpatient (IN) | payer MEDICARE, OTHER, SELFPAY ==
[2020-07-12] VITALS (15 sets, daily range): BP systolic 121–155; BP diastolic 59–82; PULSE 46–72; RESP 13–19; TEMP 36.5–36.6; O2SAT 93–96; BMI 30.4; BMI 29.7
--- NOTE | 2020-07-12 12:57 | ECG_ITS ---
APPROVED REPORT Exam: Resting ECG HR:55 bpm ECG Measurements Heart Rate 55 AXES NJ 168 P 85 QRSd 132 QRS 79 QT 456 T 67 QTc 436 Conclusion Sinus bradycardia with marked sinus arrhythmia Right bundle branch block Septal infarct, age undetermined Abnormal ECG Electronically signed by : Gene Gutiérrez, 07/13/2020 08:47:04
--- NOTE | 2020-07-12 13:10 | XR_ITS ---
PROCEDURE: XR CHEST PORTABLE CLINICAL HISTORY: low HR COMPARISON: CR XR CHEST 2V from 06/18/2020 CR XR CHEST 2V from 06/28/2020 FINDINGS: Normal heart size. Loop recorder device is in place. There is elevation of the right hemidiaphragm with mild right basilar atelectatic change. There are multiple old left-sided rib fractures. No lobar consolidation or collapse is evident. There postsurgical changes of both shoulders with anchor screws in place with bilateral subacromial stenosis and high-riding right humeral head. Calcific tendonitis noted of the left shoulder. IMPRESSION: As above, no acute finding Dictated by: Misha Oreilly MD 07/12/2020 14:03 Misha Oreilly MD in [place] 07/12/2020 14:03
[2020-07-12 13:17] LABS: Basophils # 0.1 K/mm3 (0-0.2); Eosinophils # 0.2 K/mm3 (0.0-0.4); Eosinophils % 3.2 % (0.1-12.0); Hematocrit 50.5 % (42.0-52.0); Hemoglobin 16.8 g/dL (14.1-18.0); Lymphocytes # 1.2 K/mm3 (0.7-4.5); Lymphocytes % 20.4 % (10-50); Mean Corpuscular HGB Conc 33.3 g/dL (31.8-35.4); Mean Corpuscular Hemoglobin 30.9 pg (27.0-31.2); Mean Corpuscular Volume 92.8 fl (80-94); Mean Platelet Volume 7.8 fl (7.4-10.4); Monocytes # 0.3 K/mm3 (0.1-1.0); Monocytes % 5.5 % (1.7-9.3); Neutrophils # 4.1 K/mm3 (1.8-7.8); Platelet Count 145 K/mm3 (142-424); Red Blood Count 5.44 M/mm3 (4.60-6.20); Red Cell Distribution Width 14.6 % (11.5-17.5); White Blood Count 5.8 K/mm3 (4.8-10.8)
--- NOTE | 2020-07-12 13:20 | HMH.EDGENADL ---
ED Disposition Clinical Impression: Bradycardia Disposition: Admitted As Inpatient Condition on Discharge: Fair Referrals: Jacob Salas MD [Primary Care Provider] - - Critical Care Critical Care Time: No Attestation: On 07/12/20, the high probability of a clinically significant, sudden or life threatening deterioration of the following system(s) required my full and direct attention, intervention and personal management. The time I documented below is in addition to time spent performing reported procedures but includes the following listed in this critical care notation. Medical Decision Making - [place] Inquiry Pt receiving controlled substance: No Vital Signs: 07/12/20 12:51 07/12/20 14:14 07/12/20 14:15 Temperature 97.8 F Temperature Source Oral Pulse Rate 55 L 46 L Pulse Rate [Left Radial] 58 L Respiratory Rate 18 17 15 Blood Pressure Blood Pressure [Right Arm] 142/74 H Blood Pressure Mean Blood Pressure Mean [Right Arm] 96 Blood Pressure Source [Right Arm] Automatic Cuff Blood Pressure Position [Right Arm] Sitting 02 Sat by Pulse Oximetry 95 93 L 94 L Oxygen Delivery Method Room Air 07/12/20 14:30 07/12/20 14:31 07/12/20 14:45 Temperature Temperature Source Pulse Rate 57 L 54 L Pulse Rate [Left Radial] Respiratory Rate 19 15 19 Blood Pressure 140/82 Blood Pressure [Right Arm] Blood Pressure Mean 99 Blood Pressure Mean [Right Arm] Blood Pressure Source [Right Arm] Blood Pressure Position [Right Arm] 02 Sat by Pulse Oximetry 95 96 Oxygen Delivery Method 07/12/20 15:00 07/12/20 15:02 Temperature Temperature Source Pulse Rate 58 L 50 L Pulse Rate [Left Radial] Respiratory Rate 18 16 Blood Pressure 155/80 H Blood Pressure [Right Arm] Blood Pressure Mean 105 Blood Pressure Mean [Right Arm] Blood Pressure Source [Right Arm] Blood Pressure Position [Right Arm] 02 Sat by Pulse Oximetry 96 95 Oxygen Delivery Method - Lab Data Lab Results 07/12/20 13:08: WBC 5.8, RBC 5.44, Hgb 16.8, Hct 50.5, MCV 92.8, MCH 30.9, MCHC 33.3, RDW 14.6, Plt Count 145, MPV 7.8, Neut % (Auto) 70.0, Lymph % (Auto) 20.4, [place] % (Auto) 5.5, Eos % (Auto) 3.2, Baso % (Auto) 1.0, Neut # (Auto) 4.1, Lymph # (Auto) 1.2, [place] # (Auto) 0.3, Eos # (Auto) 0.2, Baso # (Auto) 0.1 07/12/20 13:08: Sodium 136, Potassium 4.2, Chloride 100, Carbon Dioxide 29, Anion Gap 11.2, BUN 20, Creatinine 1.50 H, Estimated Creat Clear 61, Estimated GFR 46 L, Est GFR ( Amer) 55 L, Glucose 112 H, Calcium 9.2, Total Bilirubin 1.2, AST 37, ALT 16, Alkaline Phosphatase 107, Troponin I < 0.01, Total Protein 7.3, Albumin 4.4, Globulin 2.9, Albumin/Globulin Ratio 1.5 Result diagrams: 07/12/20 13:08 07/12/20 13:08 Orders (Tests/Meds): ORDERS Category Date Time Status Consult to Cardiology [CONS] Routine Cons 07/12/20 14:12 Active Free T4 (Free Thyroxine) Stat Lab 07/12/20 13:08 Received TSH [Thyroid Stimulating Hormone] Stat Lab 07/12/20 13:08 Received Troponin I Q3H Lab 07/12/20 16:10 Received Troponin I Q3H Lab 07/12/20 19:15 Ordered - Radiology Data #1 Image(s): Chest Image Reviewed: Yes I reviewed the patient's radiology image, Yes I have reviewed radiologist's interpretation PROCEDURE: XR CHEST PORTABLE CLINICAL HISTORY: low HR COMPARISON: CR XR CHEST 2V from 06/18/2020 CR XR CHEST 2V from 06/28/2020 FINDINGS: Normal heart size. Loop recorder device is in place. There is elevation of the right hemidiaphragm with mild right basilar atelectatic change. There are multiple old left-sided rib fractures. No lobar consolidation or collapse is evident. There postsurgical changes of both shoulders with anchor screws in place with bilateral subacromial stenosis and high-riding right humeral head. Calcific tendonitis noted of the left shoulder. IMPRESSION: As above, no acute finding Dictated by: Job Oreilly
[2020-07-12 13:25] LABS: Alanine Aminotransferase 16 U/L (12-78); Albumin Level 4.4 g/dl (3.5-5.0); Albumin/Globulin Ratio 1.5 (1.1-1.8); Alkaline Phosphatase 107 U/L (38-126); Anion Gap 11.2 mEq/L (5-15); Aspartate Amino Transferase 37 U/L (17-59); Bilirubin,Total 1.2 mg/dl (0.2-1.3); Blood Urea Nitrogen 20 mg/dl (9-20); Calcium 9.2 mg/dl (8.4-10.2); Carbon Dioxide 29 mmol/L (22.0-30.0); Chloride 100 mmol/L (98-107); Creatinine Clearance Estimated 61 mL/min (50-200); Estimated Glomerular Filt Rate 46 ml/min (>60); GFR (African American) 55 ML/MIN (>60); Globulin 2.9 g/dL (1.3-3.2); Glucose 112 mg/dl (74-100); Potassium 4.2 mmoL/L (3.5-5.1); Sodium 136 mmol/L (136-145); Total Protein,Serum 7.3 g/dl (6.3-8.2)
[2020-07-12 13:46] LABS: Troponin I < 0.01 ng/ml (0.00-0.034)
--- NOTE | 2020-07-12 14:11 | PC.NURSE ---
MD Zambrano speaking in person with CARLTON Bazzi about pt at this time.
--- NOTE | 2020-07-12 14:45 | PC.NURSE ---
cardiology office staff at looking at pts loop monitor
--- NOTE | 2020-07-12 14:59 | HMH.CNCARD ---
History of Present Illness Consult date: 07/12/20 Requesting physician: Jacob Salas Chief complaint: bradycardia Additional Medical History:: 1. CAD A. History of CHF B. Tj myoview, 06/2020, no ischemia with EF of 40% (felt lower due to ectopy) 2. Anxiety/Depression 3. Asthma 4. HTN A. Echo, 06/2020, EF >55%, mild to mod TR with RVSP of 55-60 mm Hg. 5. HLD, statin held due to back pain History of present illness: Sent in for low heart rate. Home health nurse took his pulse this morning and it was 34. A call was placed to Dr. Salas who advised them to bring him to the emergency room. says that he vomited on the way here, which is very unusual for him, but he currently denies nausea. He feels fine today. No chest pain or shortness of breath. No faintness or lightheadedness. Admitted here 06/18/2020 through 06/20/2020 for syncope. He was seen by cardiology and had a loop recorder placed. The above per Dr. Zambrano relates he has complaint of fatigue at home and no energy. Denies any chest pain, pressure or tightness. EKG today shows sinus bradycardia with sinus arrhythmia, 2 PVC's, RBBB and Septal infarct pattern. ILR download shows multiple episodes of bradycardia today with lowest HR of 38 bpm. Recent symptomatic episode on 07/11/2020 with lightheadedness shows sinus rhythm with frequent PVC's. [facility] History Medical History: Reports:: Anxiety, Asthma, Congestive Heart Failure, Coronary Artery Disease, Depression, Hyperlipidemia, Hypertension Denies:: Diabetes Mellitus Type 1, Diabetes Mellitus Type 2 *Have you ever received a pneumonia vaccine?: Yes *Have you received a flu vaccine this season?: Yes Other Surgeries: Yes: Cardiac Catheterization, Coronary Stent - *Social History Smoking Status: Former smoker Tobacco Type: cigarettes # Packs/Day (cigarettes): 2 #Yrs smoked (if former smoker): 40 Alcohol Intake: never Substance Use Type: denies use *Occupational Status:: retired Household Members: spouse *Travel in the last 8 weeks: Inside the [facility] - Psychiatric History Pschychiatric History:: Reports:: Anxiety, Depression Family Hx:: Cancer, Coronary Artery Disease, Heart Attack, Stroke Meds Home Medications Medication Instructions Recorded Confirmed Type amlodipine 10 mg tablet 10 mg PO DAILY 06/18/20 06/27/20 History aspirin 81 mg tablet,delayed 81 mg PO DAILY 06/18/20 06/27/20 History release fluoxetine 20 mg capsule 20 mg PO DAILY 06/18/20 06/27/20 History Losartan Potassium 100 mg PO DAILY 06/19/20 06/27/20 History albuterol sulfate 90 mcg/actuation 2 puff INHALATION Q4-6H PRN #8.5 g 06/27/20 06/27/20 Rx aerosol inhaler hydrocodone 7.5 mg-acetaminophen 1 tab PO TID PRN #60 tab 06/27/20 06/27/20 Rx 325 mg tablet cholecalciferol (vitamin D3) 25 25 mcg PO DAILY 06/28/20 06/28/20 History mcg (1,000 unit) capsule Allergies Allergy/AdvReac Type Severity Reaction Status Date / Time Penicillins AdvReac Unknown Verified 06/28/20 10:59 Exam Vital signs and Labs for Last 24 Hours: Temp Pulse Resp BP Pulse Ox 97.8 F 57 L 15 140/82 95 07/12/20 12:51 07/12/20 14:31 07/12/20 14:31 07/12/20 14:31 07/12/20 14:31 Laboratory Results - last 24 hr 07/12/20 13:08: WBC 5.8, RBC 5.44, Hgb 16.8, Hct 50.5, MCV 92.8, MCH 30.9, MCHC 33.3, RDW 14.6, Plt Count 145, MPV 7.8, Neut % (Auto) 70.0, Lymph % (Auto) 20.4, [place] % (Auto) 5.5, Eos % (Auto) 3.2, Baso % (Auto) 1.0, Neut # (Auto) 4.1, Lymph # (Auto) 1.2, [place] # (Auto) 0.3, Eos # (Auto) 0.2, Baso # (Auto) 0.1 07/12/20 13:08: Sodium 136, Potassium 4.2, Chloride 100, Carbon Dioxide 29, Anion Gap 11.2, BUN 20, Creatinine 1.50 H, Estimated Creat Clear 61, Estimated GFR 46 L, Est GFR ( Amer) 55 L, Glucose 112 H, Calcium 9.2, Total Bilirubin 1.2, AST 37, ALT 16, Alkaline Phosphatase 107, Troponin I < 0.01, Total Protein 7.3, Albumin 4.4, Globulin 2.9, Albumin/Globulin Ratio 1.5 I & O for Last 24 hours: Intake & Ou
--- NOTE | 2020-07-12 16:06 | PC.NURSE ---
called and is in a room with a pt and will return the call to ER MD sarah.
--- NOTE | 2020-07-12 16:13 | PC.NURSE ---
Dr. keller at
--- NOTE | 2020-07-12 16:27 | PC.NURSE ---
pt request to sit upright in a wheelchair. patient assisted to a seated position in wheelchair. Wheelchair in locked position. Family at .
[2020-07-12 16:40] LABS: Adenovirus,PCR Not Detected (NotDetected); Bordetella Pertussis Not Detected (NotDetected); Chlamydophila Pneumoniae, PCR Not Detected (NotDetected); Coronavirus 19, PCR Not Detected (NotDetected); Coronavirus 229E Not Detected (NotDetected); Coronavirus NL63 Not Detected (NotDetected); Coronavirus OC43 Not Detected (NotDetected); Coronovirus HKU1,PCR Not Detected (NotDetected); Human Metapneumovirus Not Detected (NotDetected); Influenza A, PCR Not Detected (NotDetected); Influenza AH1, 2009 Not Detected (NotDetected); Influenza AH1, PCR Not Detected (NotDetected); Influenza AH3,PCR Not Detected (NotDetected); Influenza B, PCR Not Detected (NotDetected); Mycoplasma Pneumoniae, PCR Not Detected (NotDetected); Parainfluenza 1, PCR Not Detected (NotDetected); Parainfluenza 2, PCR Not Detected (NotDetected); Parainfluenza 3, PCR Not Detected (NotDetected); Parainfluenza 4, PCR Not Detected (NotDetected); Respiratory Syncytial Virus Not Detected (NotDetected); Rhinovirus/Enterovirus Not Detected (NotDetected)
[2020-07-12 16:41] LABS: Troponin I < 0.01 ng/ml (0.00-0.034)
--- NOTE | 2020-07-12 16:58 | PC.NURSE ---
COVID swab sent up to lab.
--- NOTE | 2020-07-12 17:55 | PC.NURSE ---
Per lab covid test just finished and it failed, test is to rerun approx 70 minutes until results are resulted.
[2020-07-12 17:56] LABS: Thyroid Stimulating Hormone 3.29 uIU/mL (0.465-4.68)
--- NOTE | 2020-07-12 17:56 | PC.NURSE ---
Pt and family notified of covid test failure.
[2020-07-12 18:14] LABS: Free T4 (Free Thyroxine) 1.44 ng/dl (0.78-2.19)
--- NOTE | 2020-07-12 19:18 | PC.NURSE ---
Report given Concetta SAHNI. Will be to get pt
--- NOTE | 2020-07-12 19:33 | PC.NURSE ---
patient up to floor via wheelchair.
[2020-07-12 19:58] LABS: Troponin I < 0.01 ng/ml (0.00-0.034)
[2020-07-13] VITALS (7 sets, daily range): BP systolic 136–181; BP diastolic 65–85; PULSE 50–73; RESP 16–20; TEMP 36.5–36.9; O2SAT 95–98; BMI 29.7
--- NOTE | 2020-07-13 06:20 | PC.NURSE ---
Pt admitted to the floor at 1933 and in no acute distress. ED stated that patient was very mobile, however, patient nearly fell in the bathroom while standing to urinate. Patient refused to use the urinal. Gave patient a bedside commode and stated he could urinate but needed to call before using, pt verbalized understanding. Also placed bed alarm on patient. Patient also had a 6 run of Tab mccurdy MD aware, stated if happened again to call Dr. Reynolds. Patient also was bradycardic several times during the night but rebounded quickly, patient in no acute distress. Per patient and patient's daughter, Pacemaker to be placed Wednesday July 15, 2020. Will continue to monitor for any acute changes.
--- NOTE | 2020-07-13 09:17 | HMH.HP ---
*Admission Date: 07/12/20 *Chief complaint: low hr *History of present illness: this pt was sent in by home health for low heart rate - he was seen in the ed - scription of Symptoms (Recalled from ER Triage Doc. by RN): Sent over by home health for slow heart rate. Pt denies any symtoms but states that for the past 6 months he has been tired not wanting to get out of bed Sent in for low heart rate. Home health nurse took his pulse this morning and it was 34. A call was placed to Dr. Salas who advised them to bring him to the emergency room. says that he vomited on the way here, which is very unusual for him, but he currently denies nausea. He feels fine today. No chest pain or shortness of breath. No faintness or lightheadedness. Admitted here 06/18/2020 through 06/20/2020 for syncope. He was seen by cardiology and had a loop recorder placed. pt was send by card-1. CAD A. History of CHF B. Tj myoview, 06/2020, no ischemia with EF of 40% (felt lower due to ectopy) 2. Anxiety/Depression 3. Asthma 4. HTN A. Echo, 06/2020, EF >55%, mild to mod TR with RVSP of 55-60 mm Hg. 5. HLD, statin held due to back pain History of present illness: Sent in for low heart rate. Home health nurse took his pulse this morning and it was 34. A call was placed to Dr. Salas who advised them to bring him to the emergency room. says that he vomited on the way here, which is very unusual for him, but he currently denies nausea. He feels fine today. No chest pain or shortness of breath. No faintness or lightheadedness. Admitted here 06/18/2020 through 06/20/2020 for syncope. He was seen by cardiology and had a loop recorder placed. The above per Dr. Zambrano relates he has complaint of fatigue at home and no energy. Denies any chest pain, pressure or tightness. EKG today shows sinus bradycardia with sinus arrhythmia, 2 PVC's, RBBB and Septal infarct pattern. ILR download shows multiple episodes of bradycardia today with lowest HR of 38 bpm. Recent symptomatic episode on 07/11/2020 with lightheadedness shows sinus rhythm with frequent PVC's. 1. CAD A. History of CHF B. Tj myoview, 06/2020, no ischemia with EF of 40% (felt lower due to ectopy) 2. Anxiety/Depression 3. Asthma 4. HTN A. Echo, 06/2020, EF >55%, mild to mod TR with RVSP of 55-60 mm Hg. 5. HLD, statin held due to back pain History of present illness: Sent in for low heart rate. Home health nurse took his pulse this morning and it was 34. A call was placed to Dr. Salas who advised them to bring him to the emergency room. says that he vomited on the way here, which is very unusual for him, but he currently denies nausea. He feels fine today. No chest pain or shortness of breath. No faintness or lightheadedness. Admitted here 06/18/2020 through 06/20/2020 for syncope. He was seen by cardiology and had a loop recorder placed. The above per Dr. Zambrano relates he has complaint of fatigue at home and no energy. Denies any chest pain, pressure or tightness. EKG today shows sinus bradycardia with sinus arrhythmia, 2 PVC's, RBBB and Septal infarct pattern. ILR download shows multiple episodes of bradycardia today with lowest HR of 38 bpm. Recent symptomatic episode on 07/11/2020 with lightheadedness shows sinus rhythm with frequent PVC's. pt with no specific c/o this am and will need pacemaker [facility] History I have reviewed the patient's past medical history: Yes Medical History: Reports:: Anxiety, Asthma, Cancer (Renal, Pt has 1 kidney), Congestive Heart Failure, Coronary Artery Disease, Depression, Hyperlipidemia, Hypertension, Peripheral Artery Disease Denies:: Diabetes Mellitus Type 1, Diabetes Mellitus Type 2 *Have you ever received a pneumonia vaccine?: No *Have you received a flu vaccine this season?: Yes Other Medical History: Reports: Arthritis Other Surgeries: Yes: Cardiac Catheterization, Coronary Stent - *Social History Last grade of school comple
--- NOTE | 2020-07-13 11:10 | HMH.PHAVTE ---
[facility] Pharmacy VTE Monitoring - Patient Demographics Admission date: 07/12/20 Report Date: 07/13/20 Time: 11:10 Allergies/Adverse Reactions: Patient Allergies Penicillins Adverse Reaction (Unknown, Verified 06/28/20 10:59) Height: 1.8 m Weight: 96.303 kg Patient Problems: Current Active Problems Coronary artery disease (Chronic) Essential hypertension (Chronic) Back pain (Acute) History of renal cell cancer (Acute) Ventricular bigeminy (Acute) Symptomatic bradycardia (Acute) History of syncope (Acute) Bradycardia (Acute) - VTE Risk Labs: VTE Related Lab Results Hgb 16.8 g/dL (14.1-18.0) 07/12/20 13:08 Hct 50.5 % (42.0-52.0) 07/12/20 13:08 Plt Count 145 K/mm3 (142-424) 07/12/20 13:08 BUN 20 mg/dl (9-20) 07/12/20 13:08 Creatinine 1.50 mg/dl (0.66-1.25) H 07/12/20 13:08 Estimated Creat Clear 61 mL/min (50-200) 07/12/20 13:08 VTE Score: 3 VTE Risk Level: Low Risk - Prophylaxis VTE Prophylaxis Ordered?: Yes Types of VTE Prophylaxis: TEDS Knee High Location of Applied Device: Bilateral Lower Extremeties
--- NOTE | 2020-07-13 11:10 | HMH.PHAINT ---
MEDICATION RECONCILIATION COMPLETED ON PATIENT USING EXTERNAL FILL HISTORY FROM PHARMACY, PCP/CARDIOLOGY OFFICE NOTES, AND DISCHARGE SUMMARY FROM PREVIOUS ADMISSION. -LOBO ANDREWD
--- NOTE | 2020-07-13 15:35 | PC.NURSE ---
Pt has rested in bed majority of the day. Expiratory rhonchi in bilat lower lobes and inspiratory wheezing in bilateral upper lobes noted. Pt continues on RA w/ o2 sats >95%. Active bowel sounds in all 4 quads, no BM noted this shift. Pt continues to urinate in BSC. Bed alarm turned off d/t pt moving around in bed. Call light given to pt and pt agreed if he needs to get up to the use the bathroom he will use his call light first for standby assist. No other acute changes or complaints at this time. Will continue to monitor.
[2020-07-14] VITALS (11 sets, daily range): BP systolic 139–167; BP diastolic 61–89; PULSE 53–89; RESP 16–20; TEMP 36.4–36.8; O2SAT 94–96; BMI 29.8
--- NOTE | 2020-07-14 03:52 | PC.NURSE ---
Pt resting comfortably in bed with eyes closed. Patient oriented X 4. Patient requested pain medicine X 1 this shift. Patient will have a pacemaker placed on Wednesday July 15, 2020. Patient did not have ectopy or any unfavorable cardiac event this shift. Will continue to monitor for any acute changes.
--- NOTE | 2020-07-14 09:12 | HMH.ACPN2 ---
Internal Medicine - PN: Subj *Date: 07/14/20 *Time: 09:12 Interval history: Patient relays an uneventful night. There is no chest pain, no further symptomatic bradycardia. The lowest heart rate we have seen today has been 38 upon presentation. Heart rate last night was between 46 and 73. Systolic pressures in the 150s. Patient has a history of stent deployment, his Lexiscan was normal. Monitor shows normal sinus rhythm with frequent PVCs. He has a renal insufficiency, is at his baseline of 1.50. Troponins have been negative. Cardiology has seen and evaluated. He is tentatively scheduled for pacemaker at 10 AM tomorrow. We had tentative plans to use atropine or low-dose dopamine as indicated, so far that has not been the case. Resting comfortably and at his baseline mentation. Exam Vital signs and Labs for Last 24 Hours: Temp Pulse Resp BP Pulse Ox 98.3 F 72 18 156/75 H 95 07/14/20 07:57 07/14/20 07:57 07/14/20 07:57 07/14/20 07:57 07/14/20 07:57 I & O for Last 24 hours: Intake & Output 07/11/20 07/12/20 07/13/20 07/14/20 23:59 23:59 23:59 23:59 Intake Total 2049 240 / 240 Balance 2049 240 / 240 Weight 212 lb 15.112 oz 212 lb 5 oz 213 lb 3 oz - Constitutional no acute distress - *Routine HEENT Exam Head: Present: normocephalic Eye: Present: EOMI, PERRL ENT: Present: mucous membranes moist - *Routine Neck Exam Present: supple. Absent: lymphadenopathy - *Routine Respiratory Exam Present: CTA bilaterally - *Routine Cardiovascular Exam Present: RRR, bradycardia, ectopic - *Routine Abdominal Exam Present: soft, normoactive bowel sounds. Absent: tenderness - *Routine Extremities Exam Absent: cyanosis, clubbing, edema - *Routine Skin Exam Present: warm. Absent: rash - *Routine Neurological Exam Present: alert, oriented X3 Assessment and Plan (1) Symptomatic bradycardia Status: Acute Category: Medical Code(s): R00.1 - Bradycardia, unspecified (2) History of syncope Status: Acute Category: Medical Code(s): Z87.898 - Personal history of other specified conditions (3) Ventricular bigeminy Status: Acute Category: Medical Code(s): I49.8 - Other specified cardiac arrhythmias (4) History of renal cell cancer Status: Acute Category: Medical Code(s): Z85.528 - Personal history of other malignant neoplasm of kidney (5) Coronary artery disease Status: Chronic Qualifiers: Coronary Disease-Associated Artery/Lesion type: [place] artery [place] vs. transplanted heart: [place] heart Associated angina: without angina Qualified Code(s): I25.10 - Atherosclerotic heart disease of [place] coronary artery without angina pectoris Category: Medical Code(s): I25.10 - Atherosclerotic heart disease of [place] coronary artery without angina pectoris (6) Essential hypertension Status: Chronic Category: Medical Code(s): I10 - Essential (primary) hypertension (7) Back pain Status: Acute Qualifiers: Back pain location: low back pain Chronicity: acute Back pain laterality: midline Sciatica presence: unspecified whether sciatica present Qualified Code(s): M54.5 - Low back pain Category: Medical Code(s): M54.9 - Dorsalgia, unspecified (8) Overweight (BMI 25.0-29.9) Status: Acute Category: Medical Code(s): E66.3 - Overweight - Assessment and plan all Dx Assessment and Plan for all problems:: Continuing current monitoring, close observation in anticipation of his maker deployment tomorrow. I spoke with the patient in detail, and he understands our plan. Patient has been complaining of significant back pain after a series of falls due to syncope. We will ensure that he has adequate analgesia. He should be able to pursue physical therapy options with more vigor following pacemaker implantation.
--- NOTE | 2020-07-14 16:16 | PC.NURSE ---
PT IS RESTING IN BED. NO COMPLAINTS OF DISCOMFORT. ALERT AND ORIENTED X4. LUNG SOUNDS CLEAR. ABDOMEN SOFT/NON TENDER WITH ACTIVE BOWEL SOUNDS. AMBULATES TO THE BATHROOM. LUNG SOUNDS CLEAR. ABDOMEN SOFT/NON TENDER WITH ACTIVE BOWEL SOUNDS. NO SWELLING NOTED TO BLE. EATING AND DRINKING WELL. WILL CONTINUE TO MONITOR.
[2020-07-15] VITALS (14 sets, daily range): BP systolic 123–150; BP diastolic 60–89; PULSE 55–74; RESP 13–20; TEMP 36.3–36.7; O2SAT 93–98; BMI 29.7; BMI 29.6
--- NOTE | 2020-07-15 | IR_ITS ---
APPROVED REPORT Patient Location: Inpatient Research Lab Assistant: YARON Gill RT (R) PROCEDURES 1. Pocket formation for Permanent Pacemaker Placement. 2. Placement of an atrial sensing and pacing coil into the right atrial appendage. 3. Placement of a ventricular sensing and pacing coil in the right ventricular apex. 4. Permanent Pacemaker Placement. 5. Loop Removal INDICATION Symptomatic Bradycardia, Sinus Arrest Informed consent was obtained prior to the procedure. COMPLICATIONS None Estimated Blood Loss: Less than 10 mls TECHNIQUE 1% Lidocaine with epinephrine used to anesthetized the left anterior aspect of the chest. Scalpel was used to make the initial cutaneous incision while electrocautery was used to dissect down tinto the fascia. The fascia was lifted off the pectoralis muscle and digitally manipulated creating a pocket for the pacemaker. The patient was then placed in Trendelenburg position and the subclavian vein was accessed twice via the Selinger technique, there are two wires in the vein. A 6 [place] sheath was placed under fluoroscopic guidance into the subclavian vein over one of the wires while keeping the other wire in place within the subclavian vein. The dilator was removed from the sheath. Using fluoroscopic guidance, the ventricular lead was placed into the right ventricular apex, screwed and secured into place. Electronic interrogation proved acceptable thresholds and voltage within the lead. Using 3-0 silk, the ventricular lead was then secured into place. Lead was secured to the facia using the 3-0 silk. Following this, the sheath was pealed away. An additional 6 [place] fresh sheath and dilator was placed over the existing wire. Using fluoroscopic guidance, the atrial lead was the placed into the right atrial appendage and screwed and secured in place. Electrical interrogation demonstrated acceptable thresholds and voltage number. The atrial lead was then secured into place using 3-0 silk. 1 gram of Ancef was used to flush the pocket. Following the pacemaker generator being secured to the fascia and in place, Monocryl was used to close the subcutaneous layers while breana were used to close the cutaneous layer. A pressure dressing was placed. 1% lidocaine was used to anesthetize the skin over the intercostal space where the loop device was. Scalpel used to make cutaneous incision, hemostats used to remove loop device. Steri-stip and dermabond used to close incision, dressing applied. The patient was transferred to the postop holding area in stable condition for postoperative care. INTERROGATION Generator Model number: ASHANTI MARX DR, L311 Generator Serial number: [id number] Atrial lead model number: INGEVITY+ 52cm, 7841 Atrial lead serial number: [id number] P-wave: 3.5mV Impedence: 813 ohms Threshold: 1.2V@0.4ms Right Ventricular lead model number: INGEVITY+ 59cm, 7842 Right Ventricular lead serial number: [id number] R-wave: 12mV Impedence: 800 ohms Threshold: 0.6V@0.4ms Pacing Parameters: Mode: DDDR Base/Max Track: 60/130 ppm No diaphragmatic stimulation at 10 volts. IMPRESSION 1. Successful Pocket formation for Permanent Pacemaker Placement. 2. Successful Placement of an atrial sensing and pacing coil into the right atrial appendage. 3. Successful Placement of a ventricular sensing and pacing coil in the right ventricular apex. 4. Successful Permanent Pacemaker Placement. 5. Successful Loop Removal PLAN 1. Post op wound care, follow up office visit Electronically signed by : Robert Reynolds, 07/17/2020 09:25:17
--- NOTE | 2020-07-15 03:20 | PC.NURSE ---
No acute changes overnight. Pt A&O x4. Pt asked for tylenol x1 for back pain. Given per mar with favorable results. Pt able to ambulate independently to BR. IV patent, SL. Lungs CTA, on room air. able to make needs known. VSS, call light in reach, no concerns at this time.
--- NOTE | 2020-07-15 08:34 | HMH.PNCARD ---
Subjective Date: 07/15/20 Time: 08:34 Principal diagnosis: Symptomatic bradycardia, Nonsustained V. Tach Interval history: 75-year-old white male in bed in no acute distress. Relates he did not get much sleep last night. Slightly irritated this morning. Denies any chest pain, pressure or tightness. Review of telemetry over the weekend shows frequent PVCs with 1 nonsustained episode of ventricular tachycardia the last 6 beats at 150 bpm on 07/12/2020. Exam Vital signs and Labs for Last 24 Hours: Temp Pulse Resp BP Pulse Ox 98.0 F 74 20 142/63 H 95 07/15/20 03:37 07/15/20 08:00 07/15/20 03:37 07/15/20 03:37 07/15/20 03:37 I & O for Last 24 hours: Intake & Output 07/12/20 07/13/20 07/14/20 07/15/20 11:59 11:59 11:59 11:59 Intake Total 1210 / 1210 1080 / 1080 840 / 840 Balance 1210 / 1210 1080 / 1080 840 / 840 Weight 212 lb 5 oz 213 lb 3 oz 212 lb 6 oz - Constitutional no acute distress - *Routine HEENT Exam Head: Present: normocephalic Eye: Present: EOMI, PERRL ENT: Present: mucous membranes moist - *Routine Neck Exam Present: supple. Absent: lymphadenopathy - *Routine Respiratory Exam Present: CTA bilaterally - *Routine Cardiovascular Exam Present: RRR - *Routine Abdominal Exam Present: soft, normoactive bowel sounds. Absent: tenderness - *Routine Extremities Exam Absent: cyanosis, clubbing, edema - *Routine Skin Exam Present: warm. Absent: rash - *Routine Neurological Exam Present: alert, oriented X3 Progress Note: A&P (1) Symptomatic bradycardia Status: Acute (2) History of syncope Status: Acute (3) Ventricular bigeminy Status: Acute (4) History of renal cell cancer Status: Acute (5) Coronary artery disease Status: Chronic (6) Essential hypertension Status: Chronic (7) Back pain Status: Acute (8) Overweight (BMI 25.0-29.9) Status: Acute Assessment and Plan for All Diagnoses:: Plans for Permanent pacemaker today. Will adjust meds after insertion, probably stop amlodipine and use beta rodolfo for the VTach and CAD.
--- NOTE | 2020-07-15 14:27 | XR_ITS ---
PROCEDURE: XR CHEST PORTABLE CLINICAL HISTORY: post pacemaker COMPARISON: CR XR CHEST 2V from 06/18/2020 CR XR CHEST 2V from 06/28/2020 CR XR CHEST PORTABLE from 07/12/2020 FINDINGS: Post placement of a bipolar pacemaker by left subclavian approach. Leads are in good position in the region atrium ventricle. No evidence of pneumothorax. Surgical clips overlie the left upper chest. Lungs are clear. Right hemidiaphragm is elevated. No acute bony findings. 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 IMPRESSION: Status post pacemaker placement with good lead position and no evidence of pneumothorax. Dictated by: Misha Oreilly MD 07/15/2020 15:00 Misha Oreilly MD in [place] 07/15/2020 15:00
--- NOTE | 2020-07-15 16:06 | HMH.DCSUM ---
General - General Admission date:: 07/12/20 Discharge date: 07/15/20 HPI HPI: this pt was sent in by home health for low heart rate - he was seen in the ed - scription of Symptoms (Recalled from ER Triage Doc. by RN): Sent over by home health for slow heart rate. Pt denies any symtoms but states that for the past 6 months he has been tired not wanting to get out of bed Sent in for low heart rate. Home health nurse took his pulse this morning and it was 34. A call was placed to Dr. Salas who advised them to bring him to the emergency room. says that he vomited on the way here, which is very unusual for him, but he currently denies nausea. He feels fine today. No chest pain or shortness of breath. No faintness or lightheadedness. Admitted here 06/18/2020 through 06/20/2020 for syncope. He was seen by cardiology and had a loop recorder placed. pt was send by card-1. CAD A. History of CHF B. Tj myoview, 06/2020, no ischemia with EF of 40% (felt lower due to ectopy) 2. Anxiety/Depression 3. Asthma 4. HTN A. Echo, 06/2020, EF >55%, mild to mod TR with RVSP of 55-60 mm Hg. 5. HLD, statin held due to back pain History of present illness: Sent in for low heart rate. Home health nurse took his pulse this morning and it was 34. A call was placed to Dr. Salas who advised them to bring him to the emergency room. says that he vomited on the way here, which is very unusual for him, but he currently denies nausea. He feels fine today. No chest pain or shortness of breath. No faintness or lightheadedness. Admitted here 06/18/2020 through 06/20/2020 for syncope. He was seen by cardiology and had a loop recorder placed. The above per Dr. Zambrano relates he has complaint of fatigue at home and no energy. Denies any chest pain, pressure or tightness. EKG today shows sinus bradycardia with sinus arrhythmia, 2 PVC's, RBBB and Septal infarct pattern. ILR download shows multiple episodes of bradycardia today with lowest HR of 38 bpm. Recent symptomatic episode on 07/11/2020 with lightheadedness shows sinus rhythm with frequent PVC's. 1. CAD A. History of CHF B. Tj myoview, 06/2020, no ischemia with EF of 40% (felt lower due to ectopy) 2. Anxiety/Depression 3. Asthma 4. HTN A. Echo, 06/2020, EF >55%, mild to mod TR with RVSP of 55-60 mm Hg. 5. HLD, statin held due to back pain History of present illness: Sent in for low heart rate. Home health nurse took his pulse this morning and it was 34. A call was placed to Dr. Salas who advised them to bring him to the emergency room. says that he vomited on the way here, which is very unusual for him, but he currently denies nausea. He feels fine today. No chest pain or shortness of breath. No faintness or lightheadedness. Admitted here 06/18/2020 through 06/20/2020 for syncope. He was seen by cardiology and had a loop recorder placed. The above per Dr. Zambrano relates he has complaint of fatigue at home and no energy. Denies any chest pain, pressure or tightness. EKG today shows sinus bradycardia with sinus arrhythmia, 2 PVC's, RBBB and Septal infarct pattern. ILR download shows multiple episodes of bradycardia today with lowest HR of 38 bpm. Recent symptomatic episode on 07/11/2020 with lightheadedness shows sinus rhythm with frequent PVC's. pt with no specific c/o this am and will need pacemaker Hospital Course Hospital Course: Laboratory Tests 07/12/20 07/12/20 07/12/20 13:08 13:08 13:08 WBC 5.8 RBC 5.44 Hgb 16.8 Hct 50.5 MCV 92.8 MCH 30.9 MCHC 33.3 RDW 14.6 Plt Count 145 MPV 7.8 Neut % (Auto) 70.0 Lymph % (Auto) 20.4 [place] % (Auto) 5.5 Eos % (Auto) 3.2 Baso % (Auto) 1.0 Neut # (Auto) 4.1 Lymph # (Auto) 1.2 [place] # (Auto) 0.3 Eos # (Auto) 0.2 Baso # (Auto) 0.1 Sodium 136 Potassium 4.2 Chloride 100 Carbon Dioxide 29 Anion Gap 11.2 BUN 20 Creati
--- NOTE | 2020-07-15 16:37 | PC.NURSE ---
PT IS RESTING IN BED. NO COMPLAINTS OF DISCOMFORT. PT WAS REALLY FRUSTRATED THIS MORNING B/C HE HAD NOT HAD ANY SLEEP AT ALL AND HE WAS GOING TO HAVE TO WAIT TILL AFTER 1300 BEFORE THEY COULD START HIS PROCEDURE. PT ARRIVED BACK TO THE FLOOR AT 1505. DRESSING TO THE LEFT ANTERIOR CHEST C/D/I. PT ALSO HAD LOOP RECORDER REMOVED (DRESSING C/D/I.) VSS. PT IS VERY ANXIOUS TO GET HOME. PT HAS BEEN UP AMBULATING TO THE BATHROOM. O2 SATURATION 92-96% ON ROOM AIR. LUNG SOUNDS CLEAR. ABDOMEN SOFT/NON TENDER. PT WILL BE DISCHARGED AND WILL START TAKING BISOPROLOL.
== END 2020-07-15 18:36 | disposition home or self-care (01) | DRG 244 ==
LOC: ER 16:31 → 2ND 19:13
PROVIDERS: Internal Medicine; Admitting Provider Family Medicine; Emergency Provider Emergency Medicine; PCP Family Medicine; Visit Provider Family Medicine
PROC: 0JH606Z Insertion of Pacemaker, Dual Chamber into Chest Subcutaneous Tissue and Fascia, Open Approach (ICD-10-PCS; principal; 2020-07-15 10:00)
DX: I49.8 Other specified cardiac arrhythmias (principal); I25.10 Atherosclerotic heart disease of native coronary artery without angina pectoris; I50.9 Heart failure, unspecified; I45.10 Unspecified right bundle-branch block; E78.5 Hyperlipidemia, unspecified; I49.3 Ventricular premature depolarization; I47.2 Ventricular tachycardia; Z20.822 Contact with and (suspected) exposure to COVID-19; I12.9 Hypertensive chronic kidney disease with stage 1 through stage 4 chronic kidney disease, or unspecified chronic kidney disease; F32.9 Major depressive disorder, single episode, unspecified; N18.2 Chronic kidney disease, stage 2 (mild); G89.29 Other chronic pain; J45.909 Unspecified asthma, uncomplicated; F41.9 Anxiety disorder, unspecified; Z88.0 Allergy status to penicillin; M54.9 Dorsalgia, unspecified; Z95.5 Presence of coronary angioplasty implant and graft; Z85.528 Personal history of other malignant neoplasm of kidney; Z87.891 Personal history of nicotine dependence
CPT/HCPCS: 33208; 71045; 80053; 84439; 84443; 84484; 85025; 87581; 87633; 87798; 93005; 99152; 99153; 99283; C1785; C1898

== ENCOUNTER → 2020-07-31 10:39 | Outpatient (CLI) | payer MEDICARE, SELFPAY ==
[2020-07-31 11:34] LABS: Basophils % 0.7 % (0.1-2.0); Eosinophils # 0.2 K/mm3 (0.0-0.4); Hematocrit 49.1 % (42.0-52.0); Hemoglobin 16.8 g/dL (14.1-18.0); Lymphocytes # 1.3 K/mm3 (0.7-4.5); Lymphocytes % 21.9 % (10-50); Mean Corpuscular HGB Conc 34.2 g/dL (31.8-35.4); Mean Corpuscular Hemoglobin 31.4 pg (27.0-31.2); Mean Corpuscular Volume 91.8 fl (80-94); Mean Platelet Volume 8.3 fl (7.4-10.4); Monocytes # 0.3 K/mm3 (0.1-1.0); Monocytes % 5.9 % (1.7-9.3); Neutrophils % 68.5 % (37.0-80.0); Platelet Count 132 K/mm3 (142-424); Red Blood Count 5.34 M/mm3 (4.60-6.20); Red Cell Distribution Width 14.8 % (11.5-17.5); White Blood Count 5.8 K/mm3 (4.8-10.8)
[2020-07-31 11:40] LABS: Chloride 99 mmol/L (98-107); Potassium 4.3 mmoL/L (3.5-5.1); Sodium 137 mmol/L (136-145)
[2020-07-31 11:43] LABS: Anion Gap 10.3 mEq/L (5-15); Blood Urea Nitrogen 14 mg/dl (9-20); Carbon Dioxide 32 mmol/L (22.0-30.0); Estimated Glomerular Filt Rate 49 ml/min (>60); GFR (African American) 60 ML/MIN (>60)
[2020-07-31 11:44] LABS: Glucose 108 mg/dl (74-100)
== END ==
PROVIDERS: Visit Provider Internal Medicine Cardiovascular Disease
DX: I10 Essential (primary) hypertension (principal); I25.10 Atherosclerotic heart disease of native coronary artery without angina pectoris; I49.8 Other specified cardiac arrhythmias; I65.29 Occlusion and stenosis of unspecified carotid artery; R06.02 Shortness of breath; R55 Syncope and collapse; Z85.528 Personal history of other malignant neoplasm of kidney; Z87.898 Personal history of other specified conditions; Z95.0 Presence of cardiac pacemaker; Z01.818 Encounter for other preprocedural examination; Z20.822 Contact with and (suspected) exposure to COVID-19
CPT/HCPCS: 36415; 80048; 85025; U0003

== ENCOUNTER 2020-08-02 07:08 | Day surgery (SDC) | payer MEDICARE, OTHER, SELFPAY ==
[2020-08-02] VITALS (12 sets, daily range): BP systolic 136–197; BP diastolic 49–114; PULSE 68–75; RESP 16–18; TEMP 36.9; O2SAT 94–99; BMI 30.2
--- NOTE | 2020-08-02 06:55 | IR_ITS ---
APPROVED REPORT Patient Location: Outpatient PROCEDURES Left heart catheterization Left ventriculogram Selective coronary angiogram Drug-eluting stent deployment to the ostial proximal mid and distal dominant right coronary artery all in a contiguous manner INDICATION Three-vessel coronary disease with ischemic cardiomyopathy, Solitary kidney creatinine 1.4, Informed consent was obtained prior to the procedure. COMPLICATIONS None Estimated Blood Loss: Less than 10 mls TECHNIQUE One percent lidocaine used to anesthetize the right anterior aspect of the wrist. The right radial artery was accessed via the Seldinger technique. A 6 Indonesian sheath was placed in the right radial artery. 2.5 mg of verapamil, 800 mcg of nitroglycerin, 1mg Lidocaine and 5000 U Heparin were given through the arterial sheath. The trap catheter was also used to perform left heart catheterization, left ventriculogram and selective coronary angiogram. At the end the diagnostic angiogram therapeutic heparin was administered. The right coronary artery had severely undersized stents along with severe stenosis in the midsegment. Primary stenting could not be performed despite using an AL 0.75 guide catheter and a guide liner. With the guide liner in place a 3 mm balloon was used to predilate the mid right coronary artery and allow advancement of the guide liner into the mid segment. A 3.5 x 38 mm resolute Kyle stent was placed distally and deployed at 20 nadia. An additional 3.5 x 38 mm resolute Kyle stent was placed proximal to this yet still overlapping it and deployed at 22 nadia. A 4 mm x 38 mm resolute Buckner stent was then placed proximal to this second stent but still overlapping and then deployed at 20 nadia. An additional 4 mm x 38 mm resolute Kyle stent was placed proximal to the third stent extending back into the ostium and deployed at 22 nadia. A 4.5 x 15 mm noncompliant balloon was deployed at 22 nadia which did reduce the stenosis and better post dilate however a 5 mm x 15 mm balloon was then deployed at 20 nadia and then 22 nadia in the proximal and ostial segment which then gave excellent angiographic results with excellent apposition adequate stent deployment and significant angiographic and hemodynamic improvement. At the end of the procedure the apparatus was removed the sheath was removed good hemostasis was achieved using TR banding patient was transferred to the postoperative care in stable condition ANGIOGRAPHIC RESULTS The left main artery Is a ostial to proximal smooth eccentric 10 to 20% stenosis with a small distal eccentric aneurysm followed by 10% stenosis The left anterior descending artery Has a proximal concentric 70% stenosis followed by a 50 to 60% myocardial bridge The circumflex artery Gives rise to a moderate sized ramus intermedius which has proximal 30% and a mid vessel 70% stenosis at a 2 mm vessel. The circumflex artery is nondominant and has proximal 40 followed by mid vessel 70% tandem lesions at 2.25 mm vessel The right coronary artery Is a large dominant vessel with stents in the proximal segment which are clearly undersized for the vessel followed by a moderate eccentric aneurysm followed by additional stents which are also significantly undersized followed by a mid vessel concentric 80% stenosis followed by a small eccentric aneurysm followed by additional 5060% stenoses and an undersized distal stent The CARRION ventriculogram reveals Not performed The left ventricular end-diastolic pressure 30 mmHg IMPRESSION Three-vessel coronary disease as described above Moderate to severe elevated LVEDP Solitary kidney Successful reconstruction of the ostial proximal mid and distal dominant right coronary artery with
[2020-08-02 12:00] LABS: CATHL Activated Clotting Time 315 SEC (74-125)
[2020-08-02 12:01] LABS: CATHL Activated Clotting Time 328 SEC (74-125)
--- NOTE | 2020-08-02 13:54 | HMH.PHACLD ---
Remi Randolph has received discharge medication counseling on the following medications: NEW MEDICATION: BRILINTA CONTINUED MEDICATIONS: ATORVASTATIN, ASPIRIN, LOSARTAN, BISOPROLOL
== END 2020-08-02 13:23 | disposition home or self-care (01) ==
PROVIDERS: PCP Family Medicine; Visit Provider Internal Medicine
DX: T82.855A Stenosis of coronary artery stent, initial encounter (principal); I25.119 Atherosclerotic heart disease of native coronary artery with unspecified angina pectoris; I10 Essential (primary) hypertension; I73.9 Peripheral vascular disease, unspecified; Z85.528 Personal history of other malignant neoplasm of kidney; I34.0 Nonrheumatic mitral (valve) insufficiency; E78.5 Hyperlipidemia, unspecified; F17.210 Nicotine dependence, cigarettes, uncomplicated; I65.23 Occlusion and stenosis of bilateral carotid arteries; Y83.1 Surgical operation with implant of artificial internal device as the cause of abnormal reaction of the patient, or of later complication, without mention of misadventure at the time of the procedure; I25.5 Ischemic cardiomyopathy
CPT/HCPCS: 85347; 92928; 93458; 99152; 99153; C1725; C1769; C1876; C9600; J1644; Q9967

== ENCOUNTER 2020-08-14 08:12 | Day surgery (SDC) | payer MEDICARE, OTHER, SELFPAY ==
[2020-08-14] VITALS (12 sets, daily range): BP systolic 117–164; BP diastolic 58–90; PULSE 60–78; RESP 13–18; O2SAT 90–98; BMI 39.4
--- NOTE | 2020-08-14 | IR_ITS ---
APPROVED REPORT Patient Location: Outpatient PROCEDURES Drug-eluting stent deployment to the proximal LAD Drug-eluting stent deployment to the proximal circumflex artery INDICATION Coronary disease, Multivessel coronary disease, Stage procedure due to chronic renal failure, Informed consent was obtained prior to the procedure. COMPLICATIONS None Estimated Blood Loss: Less than 10 mls TECHNIQUE One percent lidocaine used to anesthetize the right anterior aspect of the wrist. The right radial artery was accessed via the Seldinger technique. A 6 Congolese sheath was placed in the right radial artery. 2.5 mg of verapamil, 800 mcg of nitroglycerin, 1mg Lidocaine and therapeutic heparin were administered through the arterial sheath. The JL 3 guide catheter was placed in the left main artery and a Choice PT extra-support wire was placed in the LAD. A 3 mm x 22 mm resolute [place] stent was deployed at 20 nadia reducing the severe stenosis to 0%. CHRISTINE-3 flow was present before and after the procedure. After achieving excellent angiographic results a BMW wire was placed in the circumflex artery where primary stenting could not be performed. A guide liner was advanced however this still would not allow delivery of a stent. A 2.5 x 12 mm balloon was then placed in the mid circumflex artery and deployed while this was deployed the guide liner was advanced through the proximal segment and adjacent to the proximal aspect of the balloon. The balloon was then removed and a 2.5 x 30 mm resolute Kyle stent was then deployed at 18 nadia in the proximal to mid circumflex artery reducing the severe sequential stenosis to 0%. CHRISTINE-3 flow was present before and after the procedure. After achieving excellent angiographic cells apparatus was removed sheath was removed and hemostasis was achieved using TR banding patient was transferred to the postop putting in stable condition IMPRESSION Successful stenting the proximal LAD severe disease reduced to 0% with 1 drug-eluting stent Successful stenting of the proximal to mid circumflex artery severe disease reduced to 0% with 1 drug-eluting stent PLAN 1. Continue dual antiplatelet therapy 2. LDL less than 55 3. Cardiac rehabilitation 4. Avoidance of tobacco products 5. Risk factor modification Electronically signed by : Robert Reynolds, 08/14/2020 13:45:23
[2020-08-14 09:01] LABS: Basophils # 0.1 K/mm3 (0-0.2); Basophils % 0.8 % (0.1-2.0); Eosinophils # 0.2 K/mm3 (0.0-0.4); Eosinophils % 2.7 % (0.1-12.0); Hematocrit 46.9 % (42.0-52.0); Hemoglobin 15.9 g/dL (14.1-18.0); Lymphocytes # 1.2 K/mm3 (0.7-4.5); Mean Corpuscular Hemoglobin 31.3 pg (27.0-31.2); Mean Corpuscular Volume 92.1 fl (80-94); Mean Platelet Volume 7.9 fl (7.4-10.4); Monocytes # 0.4 K/mm3 (0.1-1.0); Monocytes % 6.7 % (1.7-9.3); Neutrophils # 4.5 K/mm3 (1.8-7.8); Neutrophils % 70.7 % (37.0-80.0); Platelet Count 148 K/mm3 (142-424); Red Blood Count 5.09 M/mm3 (4.60-6.20); Red Cell Distribution Width 14.6 % (11.5-17.5); White Blood Count 6.4 K/mm3 (4.8-10.8)
[2020-08-14 09:06] LABS: Anion Gap 8.3 mEq/L (5-15); Blood Urea Nitrogen 19 mg/dl (9-20); Calcium 8.8 mg/dl (8.4-10.2); Carbon Dioxide 25 mmol/L (22.0-30.0); Chloride 105 mmol/L (98-107); Creatinine Clearance Estimated 65 mL/min (50-200); Estimated Glomerular Filt Rate 49 ml/min (>60); GFR (African American) 60 ML/MIN (>60); Glucose 134 mg/dl (74-100); Potassium 4.3 mmoL/L (3.5-5.1); Sodium 134 mmol/L (136-145)
--- NOTE | 2020-08-14 14:27 | HMH.PHACLD ---
Remi Randolph has received discharge medication counseling on the following medications: PATIENT TO START CLOPIDOGREL 75 MG DAILY ONCE HIS SUPPLY OF BRILINTA 90 MG BID IS DONE. PATIENT ALREADY TAKING BISOPROLOL 5 MG DAILY, ATORVASTATIN 20 MG HS, LOSARTAN 100 MG HS, AND ASPIRIN DR 81 MG DAILY. SPOKE WITH PATIENT AND PATIENT'S SPOUSE.
[2020-08-14 14:30] LABS: CATHL Activated Clotting Time > 400 SEC (74-125)
[2020-08-14 14:31] LABS: CATHL Activated Clotting Time > 400 SEC (74-125)
== END 2020-08-14 15:08 | disposition home or self-care (01) ==
LOC: CATHLAB 08:13
PROVIDERS: PCP Family Medicine; Visit Provider Internal Medicine
DX: I25.118 Atherosclerotic heart disease of native coronary artery with other forms of angina pectoris (principal); Z99.3 Dependence on wheelchair; I34.0 Nonrheumatic mitral (valve) insufficiency; F17.210 Nicotine dependence, cigarettes, uncomplicated; I25.5 Ischemic cardiomyopathy; I65.23 Occlusion and stenosis of bilateral carotid arteries; N18.9 Chronic kidney disease, unspecified; I13.0 Hypertensive heart and chronic kidney disease with heart failure and stage 1 through stage 4 chronic kidney disease, or unspecified chronic kidney disease; Z85.528 Personal history of other malignant neoplasm of kidney; I50.9 Heart failure, unspecified; I11.0 Hypertensive heart disease with heart failure; Z79.899 Other long term (current) drug therapy; Z79.02 Long term (current) use of antithrombotics/antiplatelets; Z88.0 Allergy status to penicillin
CPT/HCPCS: 80048; 85025; 85347; 92928; 99152; 99153; C1725; C1769; C1876; C9600; J1644; Q9967; U0003

== ENCOUNTER → 2020-08-26 08:58 | Outpatient (CLI) | payer MEDICARE, OTHER, SELFPAY ==
[2020-08-26 09:50] LABS: Basophils # 0.1 K/mm3 (0-0.2); Eosinophils # 0.1 K/mm3 (0.0-0.4); Eosinophils % 2.3 % (0.1-12.0); Hematocrit 48.6 % (42.0-52.0); Hemoglobin 16.7 g/dL (14.1-18.0); Lymphocytes # 1.2 K/mm3 (0.7-4.5); Lymphocytes % 19.7 % (10-50); Mean Corpuscular HGB Conc 34.4 g/dL (31.8-35.4); Mean Corpuscular Hemoglobin 31.5 pg (27.0-31.2); Mean Corpuscular Volume 91.5 fl (80-94); Mean Platelet Volume 8.2 fl (7.4-10.4); Monocytes # 0.4 K/mm3 (0.1-1.0); Monocytes % 6.4 % (1.7-9.3); Neutrophils # 4.2 K/mm3 (1.8-7.8); Neutrophils % 70.7 % (37.0-80.0); Platelet Count 129 K/mm3 (142-424); Red Blood Count 5.31 M/mm3 (4.60-6.20); Red Cell Distribution Width 14.5 % (11.5-17.5); White Blood Count 5.9 K/mm3 (4.8-10.8)
[2020-08-26 10:12] LABS: Chloride 99 mmol/L (98-107); Potassium 4.9 mmoL/L (3.5-5.1); Sodium 135 mmol/L (136-145)
[2020-08-26 10:15] LABS: Blood Urea Nitrogen 20 mg/dl (9-20); Estimated Glomerular Filt Rate 49 ml/min (>60); GFR (African American) 60 ML/MIN (>60)
[2020-08-26 10:16] LABS: Anion Gap 10.9 mEq/L (5-15); Calcium 9.2 mg/dl (8.4-10.2); Carbon Dioxide 30 mmol/L (22.0-30.0); Glucose 127 mg/dl (74-100)
== END ==
PROVIDERS: Visit Provider Internal Medicine
DX: I25.10 Atherosclerotic heart disease of native coronary artery without angina pectoris (principal); Z95.5 Presence of coronary angioplasty implant and graft
CPT/HCPCS: 36415; 80048; 85025

== ENCOUNTER 2020-08-26 10:11 | Outpatient (RCR) | payer MEDICARE, OTHER, SELFPAY | END 2020-10-28 10:49 | disposition home or self-care (01) | LOC: PT 10:11 | PROVIDERS: Visit Provider Internal Medicine | DX: I25.10 Atherosclerotic heart disease of native coronary artery without angina pectoris (principal); Z95.5 Presence of coronary angioplasty implant and graft | CPT/HCPCS: 93798 ==

== ENCOUNTER → 2020-09-23 13:04 | Outpatient (CLI) | payer MEDICARE, OTHER, SELFPAY ==
[2020-09-23 14:00] VITALS: PULSE 60; PULSE 64
--- NOTE | 2020-09-23 14:22 | CT_ITS ---
PROCEDURE: CT LUNG SCREENING CLINICAL INDICATION: lung cancer screening Former smoker Quit smoking 9 years ago 80 pack year smoking history No prior COMPARISON: No exams were available for comparison TECHNIQUE: The exam was performed on a GE [place] Speed [address] scanner using 2.90 mGy CTDI. A low dose helical CT CHEST was performed on a multi-detector scanner. All CT scans at the facility use one or more dose reduction, viz: automated exposure control, ma/kV adjustment per patient size (including targeted exams where dose is matched to indication, i.e. head), or iterative reconstruction technique. The LDCT was performed in a facility that meets the criteria for the screening program. Data regarding this exam was submitted to ACR which is an approved registry. The order for this exam indicates that it came as a result of a lung cancer screening counseling shard decision-making visit that included all the elements required of such a visit including smoking cessation. The radiologist interpreting this exam meets the CMS criteria for the LDCT lung cancer screening program. The exam is reported using the Lung-RADS classification scale and reported to the ACR registry. NOTE: This study was performed for the specific purposes of lung cancer screening and is not an alternative to diagnostic chest CT. RADIATION DOSE: CTDI vol(CT dose Index-volume) = 2.90mG DLP (Dose Length Product) = 112.55 mGcm FINDINGS: COPD changes. No suspicious nodule apparent. No mediastinal or hilar mass or adenopathy. Right hemidiaphragm is elevated with minimal atelectatic change in the right lung base. There is mild diffuse bronchial thickening. OTHER FINDINGS: Diffuse coronary artery calcification with stent placement. The right kidney is not in its normal location and could be absent, surgically removed, or within the pelvis. Please correlate with patient's history. There are degenerative changes in the thoracic spine in there are old left-sided rib fractures. IMPRESSION: Lung-RADS Category 1 Negative Follow-up: Continue annual screening with LDCT in 12 months Dictated by: Misha Oreilly MD 09/24/2020 09:12 Misha Oreilly MD in [place] 09/24/2020 09:12
== END ==
PROVIDERS: PCP Family Medicine; Visit Provider Internal Medicine Pulmonary Disease
DX: Z87.891 Personal history of nicotine dependence (principal); Z12.2 Encounter for screening for malignant neoplasm of respiratory organs; R06.09 Other forms of dyspnea
CPT/HCPCS: 71271; 94060; 94618; 94640

== ENCOUNTER 2020-11-27 14:40 | Inpatient (IN) | payer MEDICARE, OTHER, SELFPAY ==
[2020-11-27 14:40] VITALS: BP 178/99; PULSE 59; RESP 18; TEMP 36.7; O2SAT 98; BMI 28.7
[2020-11-27 15:54] VITALS: BMI 28.7
[2020-11-27 16:04] LABS: Basophils % 0.4 % (0.1-2.0); Eosinophils % 0.4 % (0.1-12.0); Hemoglobin 17.5 g/dL (14.1-18.0); Lymphocytes # 0.4 K/mm3 (0.7-4.5); Lymphocytes % 5.4 % (10-50); Mean Corpuscular Hemoglobin 31.9 pg (27.0-31.2); Mean Corpuscular Volume 96.5 fl (80-94); Mean Platelet Volume 8.3 fl (7.4-10.4); Monocytes # 0.5 K/mm3 (0.1-1.0); Monocytes % 5.9 % (1.7-9.3); Neutrophils # 6.6 K/mm3 (1.8-7.8); Neutrophils % 87.9 % (37.0-80.0); Platelet Count 117 K/mm3 (142-424); Red Blood Count 5.49 M/mm3 (4.60-6.20); White Blood Count 7.6 K/mm3 (4.8-10.8)
[2020-11-27 16:05] LABS: Chloride 99 mmol/L (98-107)
--- NOTE | 2020-11-27 16:05 | CT_ITS ---
PROCEDURE: CT ABDOMEN PELVIS WO CON CLINICAL INDICATION: abd pain COMPARISON: CT CT LUNG SCREENING from 09/23/2020 TECHNIQUE: Axial images obtained with sagittal and coronal reformats. All CT scans at the facility use one or more dose reduction, viz: automated exposure control, ma/kV adjustment per patient size (including targeted exams where dose is matched to indication, i.e. head), or iterative reconstruction technique. FINDINGS: LOWER THORAX: Artifact from cardiac pacemaker device. Coronary artery calcification and/or stents noted. ABDOMEN & PELVIS: Right hemidiaphragm is elevated. There is a hypodensity involving the medial aspect of the left hepatic lobe centrally segment 4B. This measures 1.2 cm possibly due to a cyst. The spleen is enlarged at 16 cm. No radiopaque gallstones. The left adrenal gland is slightly prominent maintaining an adrenal form shape. The right adrenal gland has an unremarkable appearance. No obvious pancreatic mass. There is a single hypertrophied left kidney horizontally malrotated projecting anterior to posterior measuring 12 by 6.7 cm. There is a 5 mm stone in the proximal left ureter with mild left hydronephrosis and mild stranding of the left perinephric renal fat. There has been a prior right nephrectomy. There is mild gastric distention. There gas-filled loops of small and large bowel along with fluid-filled loops of small bowel in the right mid abdominal region. There is colonic diverticulosis but no evidence of diverticulitis. No evidence of appendicitis. There are scattered hyperdense areas within the small bowel the most prominent in the right mid abdominal region series 3, image 71. This could represent ingested medication. Small-bowel hemorrhage could have a similar appearance. Multilevel degenerative changes of the lumbar spine. There are postsurgical changes of the anterior abdominal wall. There is a small right inguinal hernia containing fat. There appears to been prior left inguinal hernia surgery. There is mild eventration of the abdominal wall superiorly 5 cm inferior to the xiphoid process containing a knuckle of colon without obstruction IMPRESSION: 1. 5 mm proximal left ureteral calculus with mild obstructive uropathy and mild stranding of the left perinephric renal fat. 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 The right kidney has been removed. 2. Colonic diverticulosis without diverticulitis. 3. Mildly distended fluid-filled loops of small bowel in the right mid abdominal region which may be seen with ileus or enteritis. There is some gas-filled loops of large bowel in the transverse colon area. 4. There are scattered areas of increased density within the small bowel which could be due to ingested medication. Small-bowel hemorrhage would be included in the differential diagnosis. 5. Other nonacute findings as described above. Dictated by: Misha Oreilly MD 11/27/2020 16:59 Misha Oreilly MD in [place] 11/27/2020 16:59
[2020-11-27 16:06] LABS: Sodium 140 mmol/L (136-145)
[2020-11-27 16:08] LABS: Alanine Aminotransferase 20 U/L (12-78); Alkaline Phosphatase 109 U/L (38-126); Amylase 86 U/L (30-110); Aspartate Amino Transferase 48 U/L (17-59); Bilirubin,Total 2.1 mg/dl (0.2-1.3); Blood Urea Nitrogen 19 mg/dl (9-20); Carbon Dioxide 29 mmol/L (22.0-30.0); Creatinine Clearance Estimated 33 mL/min (50-200); Estimated Glomerular Filt Rate 24 ml/min (>60); GFR (African American) 29 ML/MIN (>60)
[2020-11-27 16:09] LABS: Albumin Level 4.5 g/dl (3.5-5.0); Albumin/Globulin Ratio 1.4 (1.1-1.8); Calcium 9.6 mg/dl (8.4-10.2); Globulin 3.3 g/dL (1.3-3.2); Glucose 161 mg/dl (74-100); Lipase 106 U/L (23-300); Total Protein,Serum 7.8 g/dl (6.3-8.2)
[2020-11-27 16:10] LABS: MANUAL DIFFERENTIAL MANUAL DIFFERENTIAL (MANUAL DIFF)
[2020-11-27 16:32] LABS: Lymphocytes % 7 % (10-50); Monocytes % 2 % (2-9); Neutrophils % 91 % (42-76); Total Cells Counted 100
[2020-11-27 16:33] LABS: Platelet Estimate Normal
[2020-11-27 17:01] VITALS: BP 175/123; PULSE 66; O2SAT 93
--- NOTE | 2020-11-27 17:22 | HMH.EDGENADL ---
ED Disposition Clinical Impression: Ureterolithiasis, Ileus, Status post nephrectomy, FRANSISCO (acute kidney injury) Disposition: Admitted As Inpatient Condition on Discharge: Good Instructions: DI for Acute Abdominal Pain Referrals: Jacob Salas MD [Primary Care Provider] - Time of Disposition: 17:37 - Critical Care Critical Care Time: No Attestation: On 11/27/20, the high probability of a clinically significant, sudden or life threatening deterioration of the following system(s) required my full and direct attention, intervention and personal management. The time I documented below is in addition to time spent performing reported procedures but includes the following listed in this critical care notation. Medical Decision Making - Medical Records Medical records reviewed: Yes: I reviewed the patient's medical records. - [place] Inquiry Pt receiving controlled substance: No Vital Signs: 11/27/20 14:40 Temperature 98.1 F Temperature Source Oral Pulse Rate [Right Radial] 59 L Respiratory Rate 18 Blood Pressure [Right Arm] 178/99 H Blood Pressure Mean [Right Arm] 125 02 Sat by Pulse Oximetry 98 Oxygen Delivery Method Room Air - Lab Data Lab results reviewed: Yes: I reviewed the patient's lab results. Lab Results 11/27/20 15:48: WBC 7.6, RBC 5.49, Hgb 17.5, Hct 53.0 H, MCV 96.5 H, MCH 31.9 H, MCHC 33.0, RDW 14.0, Plt Count 117 L, MPV 8.3, Neut % (Auto) 87.9 H, Lymph % (Auto) 5.4 L, [place] % (Auto) 5.9, Eos % (Auto) 0.4, Baso % (Auto) 0.4, Neut # (Auto) 6.6, Lymph # (Auto) 0.4 L, [place] # (Auto) 0.5, Eos # (Auto) 0.0, Baso # (Auto) 0.0, Total Counted 100, Neutrophils % (Manual) 91 H, Lymphocytes % (Manual) 7 L, Monocytes % (Manual) 2, Platelet Estimate Normal 11/27/20 15:48: Sodium 140, Potassium 4.0, Chloride 99, Carbon Dioxide 29, Anion Gap 16.0 H, BUN 19, Creatinine 2.60 H, Estimated Creat Clear 33, Estimated GFR 24 L, Est GFR ( Amer) 29 L, Glucose 161 H, Calcium 9.6, Total Bilirubin 2.1 H, AST 48, ALT 20, Alkaline Phosphatase 109, Total Protein 7.8, Albumin 4.5, Globulin 3.3 H, Albumin/Globulin Ratio 1.4, Amylase 86, Lipase 106 Result diagrams: 11/27/20 15:48 11/27/20 15:48 Orders (Tests/Meds): ED MEDICATIONS Generic Name Dose Route Start Last Admin Trade Name Freq PRN Reason Stop Dose Admin Sodium Chloride 1,000 mls @ 999 mls/hr 11/27/20 17:06 Sod Chlor 0.9% 1000ml Bag IV 11/27/20 18:06 .Q1H1M ONE Discontinued Medications Generic Name Dose Route Start Last Admin Trade Name Freq PRN Reason Stop Dose Admin Sodium Chloride 1,000 mls @ 999 mls/hr 11/27/20 16:07 11/27/20 16:45 Sod Chlor 0.9% 1000ml Bag IV 11/27/20 17:07 999 mls/hr .Q1H1M ONE Administration ORDERS Category Date Time Status UA [Urinalysis and Microscopic] Stat Lab 11/27/20 15:56 Ordered - CT Data CT Scan: Abdomen, Pelvis Time Received: 17:[address] Reviewed: Yes: I have reviewed the patient's CT results Preliminary Findings: Abnormal Findings Narrative: Prox ureteral stone w/ obstruction and stranding; prior R nephrectomy. Ileus Medical Decision Narrative: 75yo M evaluated for abdominal pain. Routine abdominal work-up is completed and shows a normal lipase but an elevated creatinine at 2.6. Patient sent for CT of the abdomen pelvis without contrast given his increased creatinine. CT scan demonstrates a proximal ureterolith causing obstruction with stranding. Patient also is noted to only have 1 kidney. I followed up with the patient regarding why he had a right nephrectomy but he is uncertain. Denies any known history of cancer, chemotherapy, radiation. Patient's CT scan also demonstrates an ileus. Case discussed with Dr. Prakash for Dr. Salas, he agrees to admit the patient for further management. Consult has been placed with Dr. Mcwilliams given patient's single obstructed kidney. General Adult HPI - General Chief complaint: Abdominal Pain Stated complaint: Stomach pain Time Seen
--- NOTE | 2020-11-27 17:30 | PC.NURSE ---
Dr Poppy sheikh
[2020-11-27 17:31] VITALS: BP 209/104; PULSE 73; O2SAT 97
--- NOTE | 2020-11-27 18:05 | PC.NURSE ---
spoke with dr. pantoja. stated to schedule patient for cystoscopy with left stent placement. order placed and senior program manager notified.
[2020-11-27 18:15] LABS: Coronavirus 19, PCR Not Detected (NotDetected); Influenza A, PCR Not Detected (NotDetected); Influenza B, PCR Not Detected (NotDetected)
--- NOTE | 2020-11-27 18:18 | PC.NURSE ---
report called to hermes de leon rn on second floor at this time. Will transfer pt to second floor when covid swab is resulted.
[2020-11-27 19:12] VITALS: BP 197/78; PULSE 61; RESP 18; TEMP 36.8; O2SAT 97; BMI 28.7
--- NOTE | 2020-11-27 19:12 | PC.NURSE ---
patient up to floor via wheelchair @ 19:11
[2020-11-27 19:36] VITALS: BP 194/106; PULSE 75; RESP 18; TEMP 36.8; O2SAT 97
[2020-11-27 19:44] VITALS: O2SAT 97
[2020-11-28] VITALS (16 sets, daily range): BP systolic 109–176; BP diastolic 52–77; PULSE 60–79; RESP 14–24; TEMP 36.9–37.2; O2SAT 93–100; BMI 28.4
[2020-11-28 01:48] LABS: Microscopic, Urine URINE MICROSCOPIC (MICROSCOPIC)
[2020-11-28 01:51] LABS: Appearance,Urine CLOUDY (Clear); Bilirubin,Urine Negative (Negative); Blood, Urine 3+ (Negative); Color,Urine DK YELLOW (Yellow); Glucose,Urine (UA) Negative (Negative); Ketones,Urine Negative (Negative); Leukocyte Esterase,Urine 1+ (Negative); Nitrate,Urine Negative (Negative); Protein,Urine 1+ (Negative); Urobilinogen,Urine 0.2 EU/dl (0.2)
[2020-11-28 02:05] LABS: Bacteria,Urine 1+ /lpf; Mucus,Urine 1+ /lpf; RBC,Urine 20-50 #/hpf (0-3)
--- NOTE | 2020-11-28 03:33 | PC.NURSE ---
Pt is A/O x4. No acute changes t/o shift. Pt denies any pain this shift. Pt is to have cystoscopy with left stent placement this AM. Pt can use toilet independently. VSS, call light within reach, will continue to monitor.
[2020-11-28 06:54] LABS: Basophils % 0.2 % (0.1-2.0); Eosinophils % 0.4 % (0.1-12.0); Hematocrit 50.1 % (42.0-52.0); Hemoglobin 16.4 g/dL (14.1-18.0); Lymphocytes # 0.5 K/mm3 (0.7-4.5); Lymphocytes % 5.7 % (10-50); Mean Corpuscular HGB Conc 32.8 g/dL (31.8-35.4); Mean Corpuscular Hemoglobin 31.5 pg (27.0-31.2); Mean Corpuscular Volume 96.1 fl (80-94); Mean Platelet Volume 7.9 fl (7.4-10.4); Monocytes # 0.6 K/mm3 (0.1-1.0); Monocytes % 7.4 % (1.7-9.3); Neutrophils # 7.1 K/mm3 (1.8-7.8); Neutrophils % 86.3 % (37.0-80.0); Platelet Count 106 K/mm3 (142-424); Red Blood Count 5.22 M/mm3 (4.60-6.20); Red Cell Distribution Width 13.9 % (11.5-17.5); White Blood Count 8.3 K/mm3 (4.8-10.8)
[2020-11-28 06:59] LABS: Anion Gap 12.2 mEq/L (5-15); Blood Urea Nitrogen 21 mg/dl (9-20); Calcium 8.9 mg/dl (8.4-10.2); Carbon Dioxide 28 mmol/L (22.0-30.0); Chloride 101 mmol/L (98-107); Creatinine Clearance Estimated 25 mL/min (50-200); Estimated Glomerular Filt Rate 17 ml/min (>60); GFR (African American) 21 ML/MIN (>60); Glucose 156 mg/dl (74-100); MANUAL DIFFERENTIAL MANUAL DIFFERENTIAL (MANUAL DIFF); Potassium 4.2 mmoL/L (3.5-5.1); Sodium 137 mmol/L (136-145)
[2020-11-28 07:18] LABS: Lymphocytes % 5 % (10-50); Monocytes % 3 % (2-9); Neutrophils % 92 % (42-76); Total Cells Counted 100
[2020-11-28 07:19] LABS: Hypochromasia 3+; Platelet Estimate Normal
--- NOTE | 2020-11-28 07:24 | P.PN_ITS ---
[facility] Anesthesia Checklist - Patient Identification Patient Identification: Arm Band, Verbal (Name & ) - Structural Data Admitted From: Home Planned Operative Procedure/s: Cysto Consent for Planned Operative Procedure(s) Verified: Yes Verified Documents: Surgical Consent, History and Physical, Cardiac Clearance - NPO Status Verified Time NPO: 00:00 - Chart Verification Results Verified: BMP, Type and Screen - Additional verifications Patient : No Anesthesia Reactions: No Cephalosporin Allergy: Yes (PCN) - Cardiovascular Assessment Heart Sounds: S1 & S2 Pulse Strength: Baseline Pulse Rhythm: Regular Peripheral Edema: No - Neurological Assessment Level of Consciousness: Awake, Appropriate - Anesthesia Plan Anesthesia Type: General [facility] History I have reviewed the patient's past medical history: Yes Medical History: Reports:: Anxiety, Asthma, Congestive Heart Failure, Coronary Artery Disease, Depression, Hyperlipidemia, Hypertension, Peripheral Artery Disease, Peripheral Vascular Disease Denies:: Cancer, Diabetes Mellitus Type 1, Diabetes Mellitus Type 2, Internal Pacemaker, MRSA, Seizures *Have you ever received a pneumonia vaccine?: Yes *Have you received a flu vaccine this season?: Yes Other Medical History: Reports: Arthritis Anesthesia experience/problems:: none Other Surgeries: Yes: Cardiac Catheterization, Coronary Stent, Other (Right Nephrectomy). No: Pacemaker Amputation: No Fractures: No - *Social History Last grade of school completed: 11th or 12th Smoking Status: Former smoker Tobacco Type: cigarettes # Packs/Day (cigarettes): 1 #Yrs smoked (if former smoker): 40 Alcohol Intake: never Substance Use Type: denies use *Occupational Status:: retired Housing: house Household Members: spouse *Travel in the last 8 weeks: None - Psychiatric History Pschychiatric History:: Reports:: Anxiety, Depression Family Hx:: No significant family history
--- NOTE | 2020-11-28 07:28 | HMH.PHAVTE ---
[facility] VTE Monitoring - Patient Demographics Admission date: 11/27/20 Report Date: 11/28/20 Time: 07:28 Allergies/Adverse Reactions: Patient Allergies Penicillins Adverse Reaction (Unknown, Verified 11/25/20 09:59) Height: 1.83 m Weight: 95.254 kg Patient Problems: Current Active Problems Ureterolithiasis (Acute) Ileus (Acute) Status post nephrectomy (Acute) FRANSISCO (acute kidney injury) (Acute) - VTE Risk Labs: VTE Related Lab Results Hgb 16.4 g/dL (14.1-18.0) 11/28/20 06:36 Hct 50.1 % (42.0-52.0) 11/28/20 06:36 Plt Count 106 K/mm3 (142-424) L 11/28/20 06:36 BUN 21 mg/dl (9-20) H 11/28/20 06:36 Creatinine 3.50 mg/dl (0.66-1.25) H D 11/28/20 06:36 Estimated Creat Clear 25 mL/min (50-200) 11/28/20 06:36 Was VTE Risk Assessment Performed: Yes VTE Score: 4 VTE Risk Level: Low Risk - Prophylaxis VTE Prophylaxis Ordered?: Yes Types of VTE Prophylaxis: IPCS Thigh High Location of Applied Device: Bilateral Lower Extremeties
--- NOTE | 2020-11-28 08:33 | XR_ITS ---
PROCEDURE: XR KUB CLINICAL INDICATION: STENT PLACEMENT COMPARISON: No exams were available for comparison FINDINGS: Fluoroscopy time: 2.2 minutes. A single images submitted showing a stent with the pigtail in the left upper quadrant.. IMPRESSION: Status post stent placement with fluoroscopic assistance Dictated by: Misha Oreilly MD 11/28/2020 15:21 Misha Oreilly MD in [place] 11/28/2020 15:21
--- NOTE | 2020-11-28 09:14 | HMH.OPNOTE ---
Date of procedure: 11/28/20 Pre-op Diagnosis:: 5 mm left proximal ureteral stone with obstruction and a solitary left kidney Post-op Diagnosis:: Same Procedure performed:: Cystoscopy with left ureteral stent placement Surgeon:: Inocente Mcwilliams MD SLUDGE CONTROL OPERATOR:: Other (thiago) Anesthesia: LMA Estimated blood loss (mL): 0 Clinical Note:: 75-year-old white male with a solitary left kidney presented yesterday with suprapubic abdominal pain. CT scan showed a 5 mm proximal left ureteral stone with obstruction. Kidney function is elevated with a creatinine of 3.5. He has made minimal urine output over the last 24 hours. Operative findings:: Fluoroscopy showed no obvious stone due to an abundance of overlying bowel gas. There is no resistance met with passage of the ureteral catheter. A 6 x 26 [place]ese stent was placed without difficulty. Operative note:: Patient taken to the operating room after informed consent was obtained. He was placed on the operating room table in the supine position and general anesthesia administered. He had been on preoperative IV antibiotic. After anesthesia he was placed into the dorsal lithotomy position and prepped and draped in the standard surgical fashion. 20 Nilson passed into the urethra and into the bladder without difficulty. The bladder was examined in a systematic fashion and there is no evidence of mucosal abnormalities, stones, diverticula or trabeculation. The prostatic urethra appeared to have a TURP defect. The ureteral orifices in their normal anatomic position. No efflux of urine was noted from the left ureteral orifice. A 5 [place]ese ureteral catheter was passed into the left ureteral orifice and under fluoroscopy up to the left renal pelvis. There was an abundance of bowel gas and no obvious stone was visualized. There is no resistance to passage of the ureteral catheter. A guidewire was then passed through the ureteral catheter and the ureteral catheter was removed. A 6 x 26 [place]ese stent was then passed over the guidewire and under fluoroscopy the guidewire removed. The string was also removed. There was a lot of dark debris noted from the stent after placement indicating decompression. The scope then removed and the Shelton catheter placed to monitor his urine output. Patient tolerated procedure well no complications. Condition: stable Disposition: PACU Specimens:: None Complications:: None
--- NOTE | 2020-11-28 10:01 | P.PN_ITS ---
[facility] Anesthesia Record Part I Intake, IV Amount: 400 Estimated blood loss (mL): 1 Urine output (mL): 0 Blood Pressure: 109/65 SaO2: 95 Pulse Rate: 79 Respiratory Rate: 17 Temperature: 98.5 F Patient is:: Drowsy Stable to PACU at:: 08:41
--- NOTE | 2020-11-28 10:39 | HMH.ANESII ---
[facility] Anesthesia Record Part II Discharge Time: 09:03 Destination: Medical Surgical Department PACU nurse assessment reviewed?: Yes Patient Condition:: Good Anesthesia Complications:: None Swallowing reflex intact?: Yes Cyanosis?: No Blood Pressure: 139/69 Pulse Rate: 71 Temperature: 98.5 F Mental Status: Alert & Oriented Pain level:: 0 Nausea and/or vomitting:: None Intake, IV Amount: 0
--- NOTE | 2020-11-28 10:55 | HMH.HP ---
*Admission Date: 11/27/20 *History of present illness: Is a 75-year-old white male, known to me from the office, who presented to the emergency room with complaints of abdominal pain. Patient has a history of pancreatitis, history of right nephrectomy. His work-up included labs showing a creatinine of 2.6, and a CT demonstrating ileus and a 5 mm proximal left stone. 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 Is been stable from a cardiovascular perspective. [facility] History Medical History: Reports:: Anxiety, Asthma, Congestive Heart Failure, Coronary Artery Disease, Depression, Hyperlipidemia, Hypertension, Peripheral Artery Disease, Peripheral Vascular Disease Denies:: Cancer, Diabetes Mellitus Type 1, Diabetes Mellitus Type 2, Internal Pacemaker, MRSA, Seizures *Have you ever received a pneumonia vaccine?: Yes *Have you received a flu vaccine this season?: Yes Other Medical History: Reports: Arthritis Anesthesia experience/problems:: none Other Surgeries: Yes: Cardiac Catheterization, Coronary Stent, Other (Right Nephrectomy). No: Pacemaker Amputation: No Fractures: No - *Social History Last grade of school completed: 11th or 12th Smoking Status: Former smoker Tobacco Type: cigarettes # Packs/Day (cigarettes): 1 #Yrs smoked (if former smoker): 40 Alcohol Intake: never Substance Use Type: denies use *Occupational Status:: retired Housing: house Household Members: spouse *Travel in the last 8 weeks: None - Psychiatric History Pschychiatric History:: Reports:: Anxiety, Depression Family Hx:: No significant family history Review of Systems - Constitutional Reports anorexia, Reports lack of energy - Eyes Denies change in vision - ENT Denies abnormal hearing - *Cardiovascular Denies chest pain - *Respiratory Denies chest congestion - *Gastrointestinal Reports abdominal pain, Reports feeling full early, Reports nausea - *Genitourinary Reports difficulty urinating, Reports painful urination - *Musculoskeletal Reports joint pain, Reports muscle weakness - Integumentary/Breasts Denies change in skin color - *Neurologic Denies seizure-like activity - Psychiatric Denies behavioral changes - Endocrine Denies rapid, pounding, or irregular heartbeat - Hematologic/Lymphatic Denies easy bleeding, Denies easy bruising - Allergic/Immunologic Denies hives Meds Home Medications Medication Instructions Recorded Confirmed Type aspirin 81 mg tablet,delayed 81 mg PO HS 06/18/20 11/27/20 History release cholecalciferol (vitamin D3) 25 25 mcg PO HS 06/28/20 11/27/20 History mcg (1,000 unit) capsule bisoprolol fumarate 5 mg tablet 5 mg PO DAILY #90 tab 08/09/20 11/27/20 Rx Clopidogrel Bisulfate [Plavix] 75 mg PO DAILY 08/14/20 11/27/20 History atorvastatin 20 mg tablet 20 mg PO HS tab 11/25/20 11/27/20 History fluoxetine 20 mg capsule 20 mg PO DAILY 11/25/20 11/27/20 History losartan 100 mg tablet 100 mg PO DAILY 11/25/20 11/27/20 History Allergies Allergy/AdvReac Type Severity Reaction Status Date / Time Penicillins AdvReac Unknown Verified 11/25/20 09:59 Exam Vital signs and Labs for Last 24 Hours: Temp Pulse Resp BP Pulse Ox 98.5 F 71 17 139/69 100 11/28/20 10:42 11/28/20 10:42 11/28/20 10:04 11/28/20 10:42 11/28/20 09:03 Laboratory Results - last 24 hr 11/27/20 15:48: WBC 7.6, RBC 5.49, Hgb 17.5, Hct 53.0 H, MCV 96.5 H, MCH 31.9 H, MCHC 33.0, RDW 14.0, Plt Count 117 L, MPV 8.3, Neut % (Auto) 87.9 H, Lymph % (Auto) 5.4 L, [place] % (Auto) 5.9, Eos % (Auto) 0.4, Baso % (Auto) 0.4, Neut # (Auto) 6.6, Lymph # (Auto) 0.4 L, [place] # (Auto) 0.5, Eos # (Auto) 0.0, Baso # (Auto) 0.0, Total Counted 100, Neutrophils % (Manual) 91 H, Lymphocytes % (Manual) 7 L, Monocytes % (Manual) 2, Platelet Estimate Normal 11/27/20 15:48: Sodium 140, Potassium 4.0, Chloride 99, Carbon Dioxide 29, Anion Gap 16.0 H, BUN 19, Creatinine 2.60 H, Estimat
--- NOTE | 2020-11-28 11:21 | HMH.PHAINT ---
MEDICATION RECONCILIATION COMPLETED ON PATIENT USING EXTERNAL FILL HISTORY FROM PHARMACY, PATIENT INTERVIEW, AND LISTS FROM CARDIOLOGY/PCP. -LOBO ANDREWD
--- NOTE | 2020-11-28 13:26 | HMH.CONS ---
*Admission Date: 11/27/20 *Reason for consult:: Left ureteral stone with obstruction and a solitary left kidney *History of present illness: Patient presented to the emergency room last evening with abdominal pain. CT scan shows a 5 mm stone in the left proximal ureter with hydronephrosis. Patient's creatinine is elevated to 3.5 from baseline of 1.1. He denies a previous history of kidney stones. His right kidney was removed several years ago but he is unsure why. He denies a history of renal cell carcinoma. His white count is normal. He denies any associated nausea vomiting or hematuria. [facility] History Medical History: Reports:: Anxiety, Asthma, Congestive Heart Failure, Coronary Artery Disease, Depression, Hyperlipidemia, Hypertension, Peripheral Artery Disease, Peripheral Vascular Disease Denies:: Cancer, Diabetes Mellitus Type 1, Diabetes Mellitus Type 2, Internal Pacemaker, MRSA, Seizures *Have you ever received a pneumonia vaccine?: Yes *Have you received a flu vaccine this season?: Yes Other Medical History: Reports: Arthritis Anesthesia experience/problems:: none Other Surgeries: Yes: Cardiac Catheterization, Coronary Stent, Other (Right Nephrectomy). No: Pacemaker Amputation: No Fractures: No - *Social History Last grade of school completed: 11th or 12th Smoking Status: Former smoker Tobacco Type: cigarettes # Packs/Day (cigarettes): 1 #Yrs smoked (if former smoker): 40 Alcohol Intake: never Substance Use Type: denies use *Occupational Status:: retired Housing: house Household Members: spouse *Travel in the last 8 weeks: None - Psychiatric History Pschychiatric History:: Reports:: Anxiety, Depression Family Hx:: No significant family history Review of Systems - Review of Systems Review of systems:: pertinent systems reviewed and negative unless documented below Meds Home Medications Medication Instructions Recorded Confirmed Type aspirin 81 mg tablet,delayed 81 mg PO HS 06/18/20 11/27/20 History release cholecalciferol (vitamin D3) 25 25 mcg PO HS 06/28/20 11/27/20 History mcg (1,000 unit) capsule bisoprolol fumarate 5 mg tablet 5 mg PO DAILY #90 tab 08/09/20 11/27/20 Rx Clopidogrel Bisulfate [Plavix] 75 mg PO DAILY 08/14/20 11/27/20 History atorvastatin 20 mg tablet 20 mg PO HS tab 11/25/20 11/27/20 History fluoxetine 20 mg capsule 20 mg PO DAILY 11/25/20 11/27/20 History losartan 100 mg tablet 100 mg PO DAILY 11/25/20 11/27/20 History Allergies Allergy/AdvReac Type Severity Reaction Status Date / Time Penicillins AdvReac Unknown Verified 11/25/20 09:59 Exam Vital signs and Labs for Last 24 Hours: Temp Pulse Resp BP Pulse Ox 98.5 F 71 17 139/69 100 11/28/20 10:42 11/28/20 10:42 11/28/20 10:04 11/28/20 10:42 11/28/20 09:03 Laboratory Results - last 24 hr 11/27/20 15:48: WBC 7.6, RBC 5.49, Hgb 17.5, Hct 53.0 H, MCV 96.5 H, MCH 31.9 H, MCHC 33.0, RDW 14.0, Plt Count 117 L, MPV 8.3, Neut % (Auto) 87.9 H, Lymph % (Auto) 5.4 L, [place] % (Auto) 5.9, Eos % (Auto) 0.4, Baso % (Auto) 0.4, Neut # (Auto) 6.6, Lymph # (Auto) 0.4 L, [place] # (Auto) 0.5, Eos # (Auto) 0.0, Baso # (Auto) 0.0, Total Counted 100, Neutrophils % (Manual) 91 H, Lymphocytes % (Manual) 7 L, Monocytes % (Manual) 2, Platelet Estimate Normal 11/27/20 15:48: Sodium 140, Potassium 4.0, Chloride 99, Carbon Dioxide 29, Anion Gap 16.0 H, BUN 19, Creatinine 2.60 H, Estimated Creat Clear 33, Estimated GFR 24 L, Est GFR ( Amer) 29 L, Glucose 161 H, Calcium 9.6, Total Bilirubin 2.1 H, AST 48, ALT 20, Alkaline Phosphatase 109, Total Protein 7.8, Albumin 4.5, Globulin 3.3 H, Albumin/Globulin Ratio 1.4, Amylase 86, Lipase 106 11/27/20 17:59: SARS-CoV-2 (PCR) Not detected, Influenza A Untype (PCR) Not detected, Influenza Type B (PCR) Not detected 11/28/20 01:27: Urine Color Dk yellow, Urine Appearance Cloudy, Urine pH 6.0, Ur Specific [place] 1.010, Urine Protein 1+, Urine Glucose (UA) Negative, Urine Ketones Negative, Urine Blood 3+
--- NOTE | 2020-11-28 18:20 | PC.NURSE ---
Pt has been pleasant this shift. Shelton cath draining cloudy, dark yellow urine per gravity. Pt has reported no pain since being up to the floor. VSS. No other acute changes or complaints, will continue to monitor
--- NOTE | 2020-11-28 18:59 | PC.NURSE ---
Addendum entered by Shanel Rodriguez RN 11/28/20 19:11: 1907- spoke to MD Mcwilliams, in 6 hours if pt has not urinated in 6 hours or appears distended- in and out cath vs victor cath d/t pt forgetting he had a cath to prevent this from happening again Original Note: 1831-pt rang out saying he needed help, BROWN Sloan came to me and notified me of pt pulling his victor cath out w/ balloon still inflated. Bright red blood noted to floor in bathroom, and sheets. Dark red blood clot noted at tip of penis and removed. Pressure applied w/ sterile 4x4's. 1834-MD Mcwilliams paged MD Salas notified while on the floor, NNO 1848- S KAITLYN Stevenson notified MD Mcwilliams regarding this situation, NNO yet
[2020-11-29] VITALS: BP 160/91; PULSE 82; RESP 20; TEMP 36.9; O2SAT 94
--- NOTE | 2020-11-29 03:38 | PC.NURSE ---
A&OX4. TOLERATING RA WELL. PT REMOVED HIS OWN F/C PRIOR SHIFT. PT HAS PEED MULTIPLE TIMES THIS SHIFT. URINE IS VERY BLOODY. PT BLED QUITE A BIT AT BEGINNING OF SHIFT, BUT IT HAS STOPPED AT THIS POINT. PT HAS NOT HAD ANY C/O THUS FAR. UP INDEPENDENTLY IN ROOM. RESTING IN BED MAJORITY OF SHIFT. VSS WILL CONTINUE TO MONITOR.
[2020-11-29 04:28] VITALS: BP 163/80; PULSE 86; RESP 20; TEMP 36.9; O2SAT 94
[2020-11-29 04:41] VITALS: BMI 309.0
[2020-11-29 06:47] LABS: Basophils % 0.4 % (0.1-2.0); Eosinophils % 0.6 % (0.1-12.0); Hemoglobin 14.1 g/dL (14.1-18.0); Lymphocytes # 0.8 K/mm3 (0.7-4.5); Mean Corpuscular HGB Conc 32.7 g/dL (31.8-35.4); Mean Corpuscular Hemoglobin 31.7 pg (27.0-31.2); Mean Corpuscular Volume 96.9 fl (80-94); Mean Platelet Volume 8.4 fl (7.4-10.4); Monocytes # 0.5 K/mm3 (0.1-1.0); Monocytes % 8.1 % (1.7-9.3); Neutrophils # 5.1 K/mm3 (1.8-7.8); Neutrophils % 78.8 % (37.0-80.0); Platelet Count 97 K/mm3 (142-424); Red Blood Count 4.43 M/mm3 (4.60-6.20); Red Cell Distribution Width 14.1 % (11.5-17.5); White Blood Count 6.5 K/mm3 (4.8-10.8)
[2020-11-29 07:10] LABS: Alanine Aminotransferase 12 U/L (12-78); Albumin Level 3.1 g/dl (3.5-5.0); Albumin/Globulin Ratio 1.1 (1.1-1.8); Alkaline Phosphatase 69 U/L (38-126); Anion Gap 9.1 mEq/L (5-15); Aspartate Amino Transferase 31 U/L (17-59); Bilirubin,Total 1.2 mg/dl (0.2-1.3); Blood Urea Nitrogen 17 mg/dl (9-20); Calcium 8.4 mg/dl (8.4-10.2); Carbon Dioxide 27 mmol/L (22.0-30.0); Chloride 103 mmol/L (98-107); Creatinine Clearance Estimated -17 mL/min (50-200); Estimated Glomerular Filt Rate 31 ml/min (>60); GFR (African American) 37 ML/MIN (>60); Globulin 2.7 g/dL (1.3-3.2); Glucose 131 mg/dl (74-100); Potassium 4.1 mmoL/L (3.5-5.1); Sodium 135 mmol/L (136-145); Total Protein,Serum 5.8 g/dl (6.3-8.2)
[2020-11-29 08:00] VITALS: BP 160/79; PULSE 71; RESP 21; TEMP 36.7; O2SAT 94
--- NOTE | 2020-11-29 09:02 | XR_ITS ---
PROCEDURE: XR KUB CLINICAL INDICATION: stent and pulled out victor, making sure stent COMPARISON: CR XR KUB from 11/28/2020 FINDINGS: The left ureteral stent is in place with the proximal aspect curled in the left mid abdominal region and the distal aspect curled in the lower pelvic area. Nonspecific bowel gas pattern. Degenerative changes lumbar spine. Multiple in injection granulomas along the left hip. IMPRESSION: Left ureteral stent remains in place Dictated by: Misha Oreilly MD 11/29/2020 09:47 Misha Oreilly MD in [place] 11/29/2020 09:47
--- NOTE | 2020-11-29 09:18 | HMH.ACPN2 ---
Internal Medicine - PN: Subj *Date: 11/29/20 *Time: 08:15 Interval history: pt laying in bed per staff pt pulled out victor while balloon was inflated last pm.- voiding without problems pt states he did not know the victor was attached to the bed and accidentally pulled it out while trying to get to the bathroom Exam Vital signs and Labs for Last 24 Hours: Temp Pulse Resp BP Pulse Ox 98.1 F 71 21 160/79 H 94 L 11/29/20 08:00 11/29/20 08:00 11/29/20 08:00 11/29/20 08:00 11/29/20 08:00 Laboratory Results - last 24 hr 11/29/20 06:37: WBC 6.5, RBC 4.43 L, Hgb 14.1, Hct 43.0, MCV 96.9 H, MCH 31.7 H, MCHC 32.7, RDW 14.1, Plt Count 97 L, MPV 8.4, Neut % (Auto) 78.8, Lymph % (Auto) 12.0, [place] % (Auto) 8.1, Eos % (Auto) 0.6, Baso % (Auto) 0.4, Neut # (Auto) 5.1, Lymph # (Auto) 0.8, [place] # (Auto) 0.5, Eos # (Auto) 0.0, Baso # (Auto) 0.0 11/29/20 06:37: Sodium 135 L, Potassium 4.1, Chloride 103, Carbon Dioxide 27, Anion Gap 9.1, BUN 17, Creatinine 2.10 H D, Estimated Creat Clear -17 L, Estimated GFR 31 L, Est GFR ( Amer) 37 L D, Glucose 131 H, Calcium 8.4, Total Bilirubin 1.2, AST 31 D, ALT 12 D, Alkaline Phosphatase 69, Total Protein 5.8 L D, Albumin 3.1 L, Globulin 2.7, Albumin/Globulin Ratio 1.1 I & O for Last 24 hours: Intake & Output 11/26/20 11/27/20 11/28/20 11/29/20 11:59 11:59 11:59 11:59 Intake Total 400 / 400 600 / 600 Output Total 200 / 200 2100 / 2100 Balance 200 / 200 -1500 / -1500 Weight 210 lb 212 lb Microbiology Reports for the Last 24 Hours: Microbiology 11/28/20 01:27 Urine,Clean Catch Urine Culture - Preliminary - Constitutional no acute distress - *Routine HEENT Exam Head: Present: normocephalic Eye: Present: PERRL ENT: Present: mucous membranes moist - *Routine Neck Exam Present: supple. Absent: lymphadenopathy - *Routine Respiratory Exam Present: CTA bilaterally - *Routine Cardiovascular Exam Present: RRR - *Routine Abdominal Exam Present: soft, normoactive bowel sounds. Absent: tenderness - *Routine Exam Genitals image: 1 - bloody discharge - *Routine Extremities Exam Present: normal capillary refill. Absent: cyanosis, clubbing, edema - *Routine Skin Exam Present: warm. Absent: rash - *Routine Neurological Exam Present: alert, oriented X3 - Routine Psychiatric Exam Present: normal affect Assessment and Plan (1) FRANSISCO (acute kidney injury) Status: Acute Category: Medical Code(s): N17.9 - Acute kidney failure, unspecified (2) Ileus Status: Acute Category: Medical Code(s): K56.7 - Ileus, unspecified (3) Status post nephrectomy Status: Acute Category: Medical Code(s): Z90.5 - Acquired absence of kidney (4) Ureteral stone with hydronephrosis Status: Acute Category: Medical Code(s): N13.2 - Hydronephrosis with renal and ureteral calculous obstruction (5) Ureterolithiasis Status: Acute Category: Medical Code(s): N20.1 - Calculus of ureter (6) Back pain Status: Acute Qualifiers: Back pain location: low back pain Chronicity: acute Back pain laterality: midline Sciatica presence: unspecified whether sciatica present Qualified Code(s): M54.5 - Low back pain Category: Medical Code(s): M54.9 - Dorsalgia, unspecified (7) Renal insufficiency Status: Acute Category: Medical Code(s): N28.9 - Disorder of kidney and ureter, unspecified (8) Depression Status: Chronic Qualifiers: Depression Type: dysthymia Qualified Code(s): F34.1 - Dysthymic disorder Category: Medical Code(s): F32.9 - Major depressive disorder, single episode, unspecified (9) Erosive osteoarthritis Status: Chronic Category: Medical Code(s): M15.4 - Erosive (osteo)arthritis (10) Essential hypertension Status: Chronic Category: Medical Code(s): I10 - Essential (primary) hypertension (11) History of r
[2020-11-29 09:56] VITALS: BMI 28.3
[2020-11-29 12:09] VITALS: BP 160/87; PULSE 60; RESP 20; TEMP 36.9; O2SAT 96
--- NOTE | 2020-11-29 13:39 | HMH.PTEV ---
Physical Therapy Evaluation Rehab PT IP Evaluation Start: 11/29/20 10:41 Freq: ONCE Status: Active Protocol: Document 11/29/20 13:32 PHOCHRIS (Rec: 11/29/20 13:38 PHOCHRIS [id number]) Subjective/History History History Pt is 75 year old male admitted to [facility] for kidney stone. Pt lives at home with his and reports independence with no use of AD prior to admittance at [facility]. Eval completed by JOSH Whalen. Subjective Subjective Pt reports feeling well this afternoon and stated he would walk with PT this afternoon. Rehab PT IP Eval Objective Appearance Patient Behavior Appropriate,Cooperative Patient Orientation Place,Name,Birthday,Year Difficulty following instructions none Speech Pattern Clear,Appropriate,Coherent Ambulation Patient Able to Ambulate Yes Ambulation Observation IP General Gait Pattern Observation Wide Based Gait,Shuffling Step Ambulation Distance (feet) 80 Ambulation Assistive Device None Ambulation Ability Contact Guard/Hand Hold Balance Ability to Arise Able, uses arms to help Sitting Balance Steady, safe Standing Balance Steady, wide stance Dynamic Sitting Balance Ability Good Dynamic Standing Balance Ability Good Transfers Bed Transfer Ability Contact Guard/Hand Hold Sit to Stand Bed Transfer Ability Contact Guard/Hand Hold ROM All Extremities PT ROM Status WFL MMT All Extremities PT MMT WFL Rehab PT IP prob,goals,plan Problems Date of Evaluation: 11/29/20 Discharge Plan PT Discharge Plan Pt would be safe to d/c home when medically stable. Pt is ambulating independently in his room with not AD at baseline. Pt does not need inpatient PT. G -code Required No Eval Complexity Eval Charge Codes 76270 - Moderate Complexity PHYSICIAN CERTIFICATION: I certify the specified therapy services for Remi Randolph are required, authorized, and reviewed every 30 days.
--- NOTE | 2020-11-29 15:41 | HMH.DCSUM ---
General - General Admission date:: 11/27/20 Discharge date: 11/29/20 HPI HPI: Is a 75-year-old white male, known to me from the office, who presented to the emergency room with complaints of abdominal pain. Patient has a history of pancreatitis, history of right nephrectomy. His work-up included labs showing a creatinine of 2.6, and a CT demonstrating ileus and a 5 mm proximal left stone. 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 Is been stable from a cardiovascular perspective. Hospital Course Hospital Course: Laboratory Tests 11/27/20 11/27/20 11/27/20 15:48 15:48 17:59 WBC 7.6 RBC 5.49 Hgb 17.5 Hct 53.0 H MCV 96.5 H MCH 31.9 H MCHC 33.0 RDW 14.0 Plt Count 117 L MPV 8.3 Neut % (Auto) 87.9 H Lymph % (Auto) 5.4 L [place] % (Auto) 5.9 Eos % (Auto) 0.4 Baso % (Auto) 0.4 Neut # (Auto) 6.6 Lymph # (Auto) 0.4 L [place] # (Auto) 0.5 Eos # (Auto) 0.0 Baso # (Auto) 0.0 Total Counted 100 Neutrophils % (Manual) 91 H Lymphocytes % (Manual) 7 L Monocytes % (Manual) 2 Platelet Estimate Normal Hypochromasia Sodium 140 Potassium 4.0 Chloride 99 Carbon Dioxide 29 Anion Gap 16.0 H BUN 19 Creatinine 2.60 H Estimated Creat Clear 33 Estimated GFR 24 L Est GFR ( Amer) 29 L Glucose 161 H Calcium 9.6 Total Bilirubin 2.1 H AST 48 ALT 20 Alkaline Phosphatase 109 Total Protein 7.8 Albumin 4.5 Globulin 3.3 H Albumin/Globulin Ratio 1.4 Amylase 86 Lipase 106 Urine Color Urine Appearance Urine pH Ur Specific [place] Urine Protein Urine Glucose (UA) Urine Ketones Urine Blood Urine Nitrate Urine Bilirubin Urine Urobilinogen Ur Leukocyte Esterase Urine RBC Urine WBC Urine Bacteria Urine Mucus SARS-CoV-2 (PCR) Not detected Influenza A Untype (PCR) Not detected Influenza Type B (PCR) Not detected 11/28/20 11/28/20 11/28/20 01:27 06:36 06:36 WBC 8.3 RBC 5.22 Hgb 16.4 Hct 50.1 MCV 96.1 H MCH 31.5 H MCHC 32.8 RDW 13.9 Plt Count 106 L MPV 7.9 Neut % (Auto) 86.3 H Lymph % (Auto) 5.7 L [place] % (Auto) 7.4 Eos % (Auto) 0.4 Baso % (Auto) 0.2 Neut # (Auto) 7.1 Lymph # (Auto) 0.5 L [place] # (Auto) 0.6 Eos # (Auto) 0.0 Baso # (Auto) 0.0 Total Counted 100 Neutrophils % (Manual) 92 H Lymphocytes % (Manual) 5 L Monocytes % (Manual) 3 Platelet Estimate Normal Hypochromasia 3+ Sodium 137 Potassium 4.2 Chloride 101 Carbon Dioxide 28 Anion Gap 12.2 BUN 21 H Creatinine 3.50 H D Estimated Creat Clear 25 Estimated GFR 17 L* Est GFR ( Amer) 21 L D Glucose 156 H Calcium 8.9 Total Bilirubin AST ALT Alkaline Phosphatase Total Protein Albumin Globulin Albumin/Globulin Ratio Amylase Lipase Urine Color Dk yellow Urine Appearance Cloudy Urine pH 6.0 Ur Specific [place] 1.010 Urine Protein 1+ Urine Glucose (UA) Negative Urine Ketones Negative Urine Blood 3+ Urine Nitrate Negative Urine Bilirubin Negative Urine Urobilinogen 0.2 Ur Leukocyte Esterase 1+ A Urine RBC 20-50 Urine WBC 5-10 Urine Bacteria 1+ Urine Mucus 1+ SARS-CoV-2 (PCR) Influenza A Untype (PCR) Influenza Type B (PCR) 11/29/20 11/29/20 06:37 06:37 WBC 6.5 RBC 4.43 L Hgb 14.1 Hct 43.0 MCV 96.9 H MCH 31.7 H MCHC 32.7 RDW 14.1 Plt Count 97 L MPV 8.4 Neut % (Auto) 78.8 Lymph % (Auto) 12.0 [place] % (Auto) 8.1 Eos % (Auto) 0.6 Baso % (Auto) 0.4 Neut # (Auto) 5.1 Lymph # (Auto) 0.8 [place] # (Auto) 0.5 Eos # (Auto) 0.0 Baso # (Auto) 0.0 Total Counted Neutrophils % (Manual) Lymphocytes % (Manual) Monocytes % (Manual) Platelet E
[2020-11-29 16:00] VITALS: BP 150/80; PULSE 70; RESP 20; TEMP 36.9; O2SAT 95
--- NOTE | 2020-11-29 16:18 | HMH.CONFU ---
Internal Medicine - PN: Subj *Date: 11/29/20 *Time: 16:18 Interval history: Vital signs stable, afebrile. Patient denies any flank pain, nausea, vomiting. He has had some hematuria since he pulled his Shelton catheter out last night with the bulb inflated but he has been voiding satisfactorily. He has had over 2 L of urine output since his procedure. His creatinine has improved to 2.1 this morning. Exam Vital signs and Labs for Last 24 Hours: Temp Pulse Resp BP Pulse Ox 98.4 F 70 20 150/80 H 95 11/29/20 16:00 11/29/20 16:00 11/29/20 16:00 11/29/20 16:00 11/29/20 16:00 Laboratory Results - last 24 hr 11/29/20 06:37: WBC 6.5, RBC 4.43 L, Hgb 14.1, Hct 43.0, MCV 96.9 H, MCH 31.7 H, MCHC 32.7, RDW 14.1, Plt Count 97 L, MPV 8.4, Neut % (Auto) 78.8, Lymph % (Auto) 12.0, [place] % (Auto) 8.1, Eos % (Auto) 0.6, Baso % (Auto) 0.4, Neut # (Auto) 5.1, Lymph # (Auto) 0.8, [place] # (Auto) 0.5, Eos # (Auto) 0.0, Baso # (Auto) 0.0 11/29/20 06:37: Sodium 135 L, Potassium 4.1, Chloride 103, Carbon Dioxide 27, Anion Gap 9.1, BUN 17, Creatinine 2.10 H D, Estimated Creat Clear -17 L, Estimated GFR 31 L, Est GFR ( Amer) 37 L D, Glucose 131 H, Calcium 8.4, Total Bilirubin 1.2, AST 31 D, ALT 12 D, Alkaline Phosphatase 69, Total Protein 5.8 L D, Albumin 3.1 L, Globulin 2.7, Albumin/Globulin Ratio 1.1 I & O for Last 24 hours: Intake & Output 11/26/20 11/27/20 11/28/20 11/29/20 23:59 23:59 23:59 23:59 Intake Total 760 / 760 720 / 720 Output Total 1900 / 2000 400 / 400 Balance -1140 / -1240 320 / 320 Weight 96.162 kg 95.254 kg 95 kg Microbiology Reports for the Last 24 Hours: Microbiology 11/28/20 01:27 Urine,Clean Catch Urine Culture - Preliminary - Constitutional no acute distress - *Routine HEENT Exam Head: Present: normocephalic Eye: Present: EOMI, PERRL ENT: Present: mucous membranes moist - *Routine Neck Exam Present: supple. Absent: lymphadenopathy - *Routine Respiratory Exam Absent: accessory muscle use - *Routine Cardiovascular Exam Absent: JVD - *Routine Abdominal Exam Present: soft. Absent: tenderness - *Routine Extremities Exam Absent: cyanosis, clubbing, edema - *Routine Skin Exam Present: warm. Absent: rash - *Routine Neurological Exam Present: alert, oriented X3 Assessment and Plan (1) FRANSISCO (acute kidney injury) Status: Acute Category: Medical Code(s): N17.9 - Acute kidney failure, unspecified (2) Ileus Status: Acute Category: Medical Code(s): K56.7 - Ileus, unspecified (3) Status post nephrectomy Status: Acute Category: Medical Code(s): Z90.5 - Acquired absence of kidney (4) Ureteral stone with hydronephrosis Status: Acute Category: Medical Code(s): N13.2 - Hydronephrosis with renal and ureteral calculous obstruction (5) Ureterolithiasis Status: Acute Category: Medical Code(s): N20.1 - Calculus of ureter 75-year-old white male status post left-sided stent placement done yesterday for a ureteral stone in the proximal ureter. The stone was not well visualized on fluoroscopy but there was no resistance to passage of the stent. A Shelton catheter was placed postoperatively to monitor urine output and possible postobstructive diuresis but patient pulled his Shelton catheter out about 6PM last evening. He had some gross blood per meatus but this resolved. He has been able to void overnight and today. He has had a little bit of blood per urethra after voiding but states that the urine is yellow. Creatinine is trending down and will plan on leaving the stent for a couple of weeks and repeating a creatinine upon return and will obtain x-ray to see if we can see the offending stone more easily and discuss treatment of the stone on his follow-up visit. (6) Back pain Status: Acute Qualifiers: Back pain location: low back pain Chronicity: acute Back pain laterality: midline Sciatica presence: unspecified whether sciatica present Qu
== END 2020-11-29 16:35 | disposition home or self-care (01) | DRG 694 ==
LOC: ER 17:37 → 2ND 11-28 07:33
PROVIDERS: Urology; Admitting Provider Emergency Medicine; Emergency Provider Family Medicine; PCP Family Medicine; Visit Provider Family Medicine
PROC: 0T9780Z Drainage of Left Ureter with Drainage Device, Via Natural or Artificial Opening Endoscopic (ICD-10-PCS; principal; 2020-11-28 07:30)
DX: N13.2 Hydronephrosis with renal and ureteral calculous obstruction (principal); K56.7 Ileus, unspecified; Z20.822 Contact with and (suspected) exposure to COVID-19; F41.9 Anxiety disorder, unspecified; J45.909 Unspecified asthma, uncomplicated; I50.9 Heart failure, unspecified; I25.10 Atherosclerotic heart disease of native coronary artery without angina pectoris; F32.9 Major depressive disorder, single episode, unspecified; E78.5 Hyperlipidemia, unspecified; I73.9 Peripheral vascular disease, unspecified; Z87.891 Personal history of nicotine dependence; I11.0 Hypertensive heart disease with heart failure; Z95.810 Presence of automatic (implantable) cardiac defibrillator; Z95.5 Presence of coronary angioplasty implant and graft; M15.4 Erosive (osteo)arthritis; Z85.528 Personal history of other malignant neoplasm of kidney; N17.9 Acute kidney failure, unspecified
CPT/HCPCS: 50694; 74018; 74176; 76000; 80048; 80053; 81001; 82150; 83690; 85007; 85025; 87086; 96365; 96366; 96367; 96375; 97162; 99284; C2617; C9803; J2405; U0003; U0005

== ENCOUNTER → 2020-12-05 10:54 | Outpatient (CLI) | payer MEDICARE, OTHER, SELFPAY ==
--- NOTE | 2020-12-05 10:58 | XR_ITS ---
PROCEDURE: XR KUB CLINICAL INDICATION: kidney stone COMPARISON: CT CT ABDOMEN PELVIS WO CON from 11/27/2020 CR XR KUB from 11/29/2020 FINDINGS: Left ureteral stent remains in place. No obvious ureteral calculus. Surgical clips are present in the right paraspinal region. There are mild degenerative changes in the hips. Multiple calcifications noted over the left hip area consistent with injection granulomas IMPRESSION: No change left ureteral stent in place. Dictated by: Misha Oreilly MD 12/05/2020 12:43 Misha Oreilly MD in [place] 12/05/2020 12:43
== END ==
PROVIDERS: PCP Family Medicine; Visit Provider Urology
DX: N20.0 Calculus of kidney (principal)
CPT/HCPCS: 74018

== ENCOUNTER → 2020-12-05 11:45 | Outpatient (CLI) | payer MEDICARE, OTHER, SELFPAY ==
[2020-12-05 13:07] LABS: Chloride 100 mmol/L (98-107); Potassium 4.1 mmoL/L (3.5-5.1); Sodium 139 mmol/L (136-145)
[2020-12-05 13:10] LABS: Anion Gap 12.1 mEq/L (5-15); Blood Urea Nitrogen 11 mg/dl (9-20); Calcium 8.5 mg/dl (8.4-10.2); Carbon Dioxide 31 mmol/L (22.0-30.0); Estimated Glomerular Filt Rate 49 ml/min (>60); GFR (African American) 60 ML/MIN (>60); Glucose 116 mg/dl (74-100)
== END ==
PROVIDERS: Visit Provider Urology
DX: N20.1 Calculus of ureter (principal)
CPT/HCPCS: 36415; 74018; 80048

== ENCOUNTER → 2020-12-06 17:21 | Outpatient (CLI) | payer MEDICARE, OTHER, SELFPAY ==
[2020-12-06 19:19] LABS: Alanine Aminotransferase 20 U/L (12-78); Albumin Level 3.5 g/dl (3.5-5.0); Albumin/Globulin Ratio 1.3 (1.1-1.8); Alkaline Phosphatase 79 U/L (38-126); Anion Gap 14.3 mEq/L (5-15); Aspartate Amino Transferase 34 U/L (17-59); Blood Urea Nitrogen 10 mg/dl (9-20); Calcium 8.9 mg/dl (8.4-10.2); Carbon Dioxide 30 mmol/L (22.0-30.0); Chloride 100 mmol/L (98-107); Estimated Glomerular Filt Rate 49 ml/min (>60); GFR (African American) 60 ML/MIN (>60); Globulin 2.7 g/dL (1.3-3.2); Glucose 121 mg/dl (74-100); Potassium 4.3 mmoL/L (3.5-5.1); Sodium 140 mmol/L (136-145); Total Protein,Serum 6.2 g/dl (6.3-8.2)
== END ==
PROVIDERS: Visit Provider Family Medicine
DX: N28.9 Disorder of kidney and ureter, unspecified (principal)
CPT/HCPCS: 80053

== ENCOUNTER → 2020-12-20 13:27 | Outpatient (CLI) | payer MEDICARE, OTHER, SELFPAY | PROVIDERS: Visit Provider Urology | DX: N20.1 Calculus of ureter (principal); Z01.812 Encounter for preprocedural laboratory examination; Z20.822 Contact with and (suspected) exposure to COVID-19 | CPT/HCPCS: C9803; U0003; U0005 ==

== ENCOUNTER 2020-12-23 08:09 | Day surgery (SDC) | payer MEDICARE, OTHER, SELFPAY ==
[2020-12-19 13:07] VITALS: BMI 27.7
[2020-12-23 09:03] VITALS: BP 139/77; PULSE 60; RESP 18; TEMP 36.4; O2SAT 97
[2020-12-23 10:00] VITALS: BP 136/82; PULSE 59; RESP 16; TEMP 36.6; O2SAT 97
[2020-12-23 10:13] VITALS: BP 136/82; PULSE 59; RESP 16; TEMP 36.6; O2SAT 97
--- NOTE | 2020-12-23 10:22 | [facility].OPNOTE ---
Date of procedure: 12/23/20 Pre-op Diagnosis:: Left ureteral stone status post stent placement Post-op Diagnosis:: Same Procedure performed:: Cystoscopy with left ureteral stent removal Surgeon:: Inocente Mcwilliams MD Anesthesia: local Estimated blood loss (mL): 0 Clinical Note:: 75-year-old white male with history of left ureteral stone status post stone manipulation left stent placement. We have decided to remove his stent as he is on Plavix and aspirin due to the fresh heart stent. He has further renal colic he is to let me know. Operative findings:: Cystoscopy and stent removal performed without difficulty. Operative note:: Patient taken to the cystoscopy suite after informed consent was obtained. On the stretcher is prepped draped in the standard surgical fashion and 2% lidocaine placed into the urethra and clamped. After 5 minutes the flexible cystoscope introduced into the urethral meatus and it passed into the bladder without difficulty. The bladder was examined in systematic fashion no evidence of stones or other abnormalities. A flexible grasper was passed through the scope and the stent grasped and removed without difficulty. Patient tolerated the procedure well there are no complications. Patient discharged to recovery in stable condition. Condition: stable Disposition: same day Specimens:: Ureteral stent Complications:: None
--- NOTE | 2020-12-23 12:56 | SUR.OPER ---
0956 stent removed from left ureter
[2020-12-23 14:34] LABS: POC Glucose,Bedside 117 (70-110)
== END 2020-12-23 10:13 | disposition home or self-care (01) ==
LOC: OUTP 08:10
PROVIDERS: PCP Family Medicine; Visit Provider Urology
PROC: (CPT 52310; principal; 2020-12-23 09:30)
DX: N20.1 Calculus of ureter (principal); J45.909 Unspecified asthma, uncomplicated; I25.10 Atherosclerotic heart disease of native coronary artery without angina pectoris; E78.5 Hyperlipidemia, unspecified; I10 Essential (primary) hypertension; Z95.0 Presence of cardiac pacemaker; I73.9 Peripheral vascular disease, unspecified; F41.9 Anxiety disorder, unspecified; F32.9 Major depressive disorder, single episode, unspecified; M19.90 Unspecified osteoarthritis, unspecified site; Z88.0 Allergy status to penicillin; Z79.899 Other long term (current) drug therapy
CPT/HCPCS: 52310; 82962

== ENCOUNTER → 2021-10-31 10:38 | Outpatient (CLI) | payer MEDICARE, OTHER, SELFPAY ==
--- NOTE | 2021-10-31 10:40 | CA_ITS ---
FINAL REPORT TECHNIQUE: Color Doppler, duplex Doppler and tafoya scale sonography of the bilateral neck arterial vasculature was performed. Velocities were measured in the carotid arteries. Stenosis evaluation based on the validated velocity criteria. CLINICAL HISTORY: dizziness, CAD, HTN, history of smoking quit 2012. FINDINGS: The peak systolic velocity of the right common carotid artery is 80 cm/s. The peak systolic velocity of the right internal carotid artery is 60 cm/s and end diastolic velocity 10 cm/s. The ICA/CCA ratio is 0.75. A small amount of plaque is present. The right external carotid artery is patent. The right vertebral artery is patent with antegrade flow. The peak systolic velocity of the left common carotid artery is 146 cm/s. The peak systolic velocity of the left internal carotid artery is 103 cm/s and end diastolic velocity 21 cm/s. The ICA/CCA ratio is 0.76. A small amount of plaque is present. The left external carotid artery is patent.The left vertebral artery is patent with antegrade flow. IMPRESSION: Less than 50% bilateral carotid stenoses. Bilateral patent vertebral arteries with antegrade flow. If indicated, CTA or MRA could further evaluate. Reviewed, Interpreted and Dictated by Derick Benavidez III, MD Transcribed by Leanne Reeves Authenticated and [facility]
== END ==
PROVIDERS: PCP Family Medicine; Visit Provider Internal Medicine Cardiovascular Disease
DX: E78.5 Hyperlipidemia, unspecified (principal); I10 Essential (primary) hypertension; I25.10 Atherosclerotic heart disease of native coronary artery without angina pectoris; I73.9 Peripheral vascular disease, unspecified; R25.1 Tremor, unspecified; R42 Dizziness and giddiness; W19.XXXA Unspecified fall, initial encounter; Z95.0 Presence of cardiac pacemaker; I65.23 Occlusion and stenosis of bilateral carotid arteries
CPT/HCPCS: 93880

== ENCOUNTER → 2021-11-18 08:15 | Outpatient (CLI) | payer MEDICARE, OTHER, SELFPAY ==
[2021-11-18 20:51] LABS: Basophils # 0.1 K/mm3 (0-0.2); Basophils % 0.9 % (0.1-2.0); Eosinophils # 0.1 K/mm3 (0.0-0.4); Eosinophils % 1.9 % (0.1-12.0); Hematocrit 47.7 % (42.0-52.0); Hemoglobin 15.2 g/dL (14.1-18.0); Lymphocytes # 1.3 K/mm3 (0.7-4.5); Lymphocytes % 20.6 % (10-50); Mean Corpuscular HGB Conc 31.9 g/dL (31.8-35.4); Mean Corpuscular Hemoglobin 31.3 pg (27.0-31.2); Mean Corpuscular Volume 98.1 fl (80-94); Mean Platelet Volume 8.7 fl (7.4-10.4); Monocytes # 0.4 K/mm3 (0.1-1.0); Monocytes % 6.3 % (1.7-9.3); Neutrophils # 4.3 K/mm3 (1.8-7.8); Neutrophils % 70.3 % (37.0-80.0); Platelet Count 163 K/mm3 (142-424); Red Blood Count 4.87 M/mm3 (4.60-6.20); Red Cell Distribution Width 14.9 % (11.5-17.5); White Blood Count 6.2 K/mm3 (4.8-10.8)
[2021-11-18 21:38] LABS: Alanine Aminotransferase 9 U/L (12-78); Albumin Level 3.6 g/dl (3.5-5.0); Albumin/Globulin Ratio 1.4 (1.1-1.8); Alkaline Phosphatase 108 U/L (38-126); Aspartate Amino Transferase 22 U/L (17-59); Bilirubin,Total 0.9 mg/dl (0.2-1.3); Blood Urea Nitrogen 15 mg/dl (9-20); Calcium 8.5 mg/dl (8.4-10.2); Carbon Dioxide 27 mmol/L (22.0-30.0); Chloride 103 mmol/L (98-107); Estimated Glomerular Filt Rate 54 ml/min (>60); GFR (African American) 65 ML/MIN (>60); Globulin 2.5 g/dL (1.3-3.2); Glucose 80 mg/dl (74-100); Sodium 137 mmol/L (136-145); Total Protein,Serum 6.1 g/dl (6.3-8.2)
[2021-11-18 21:53] LABS: 25-OH Vitamin D, Total 99.6 ng/mL (30-100)
[2021-11-18 22:06] LABS: Prostate Specific Ag Screen 0.1 ng/ml (0.0-4.0); Thyroid Stimulating Hormone 2.98 uIU/mL (0.465-4.68)
[2021-11-18 22:42] LABS: Folate 4.02 ng/mL; Vitamin B12 267 pg/mL (239-931)
== END ==
PROVIDERS: PCP Family Medicine; Visit Provider Family Medicine
DX: R41.3 Other amnesia (principal); Z12.5 Encounter for screening for malignant neoplasm of prostate; E55.9 Vitamin D deficiency, unspecified
CPT/HCPCS: 80053; 82306; 82607; 82746; 84443; 85025; G0103

== ENCOUNTER → 2022-04-23 23:32 | Outpatient (CLI) | payer OTHER, SELFPAY ==
[2022-04-23 18:37] LABS: Anion Gap 11.3 mEq/L (5-15); Blood Urea Nitrogen 19 mg/dl (9-20); Calcium 8.3 mg/dl (8.4-10.2); Carbon Dioxide 24 mmol/L (22.0-30.0); Chloride 105 mmol/L (98-107); Estimated Glomerular Filt Rate 54 ml/min (>60); GFR (African American) 65 ML/MIN (>60); Glucose 125 mg/dl (74-100); Potassium 4.3 mmoL/L (3.5-5.1); Sodium 136 mmol/L (136-145)
== END ==
PROVIDERS: PCP Family Medicine; Visit Provider Family Medicine
DX: I10 Essential (primary) hypertension (principal)
CPT/HCPCS: 80048

== ENCOUNTER 2022-05-14 09:56 | Outpatient (RCR) | payer MEDICARE, SELFPAY ==
--- NOTE | 2022-05-14 11:01 | HMH.PTOPEV ---
PT Outpatient Evaluation Rehab PT Outpatient Evaluation Start: 05/14/22 10:07 Freq: Status: Active Protocol: Document 05/14/22 10:45 KAYE (Rec: 05/14/22 11:01 KAYE [id number]) E-signed By Manoj Valdez, PT Outpatient Therapy Subjective History Subjective History This is the initial PT eval for Remi Randolph 77 yowm who presents with his spouse and reports of poor balance, R foot drop, and difficulty ambulating. R foot drop symptoms have been present for at least 6 mos with insidious onset of symptoms. He was also recently diagnosed with Parkinson's Disease by . He has no c/o pain or numbness/ tingling in either LE at this time. His reports 2-3 falls within the last 6 mos. He has PMH of R nephrectomy, PAD, prior R ankle ORIF, B RTC tendon repair. Chief Complaint Weakness Symptoms Aggravated By Walking Prior Functional Limitations None Current Functional Limitations Walking Symptom Description Activity Dependent Level of pain today (0-10) 0 Ankle/Foot Eval Gait Observation General Gait Pattern Observation Shuffling Step,Decrease Stride Lngth (R),Decrease Stride Lngth (L) Assistive Device Ambulation Assistive Device Rolling Walker MMT left Ankle Dorsiflexion Strength Grade 3+ Fair+ Ankle Plantarflexion Strength Grade 4 Good Foot Eversion Strength Grade 4 Good Foot Inversion Strength Grade 4 Good right Ankle Dorsiflexion Strength Grade 1 Trace Ankle Plantarflexion Strength Grade 4 Good Foot Eversion Strength Grade 4 Good Foot Inversion Strength Grade 4 Good Balance Eval Gait/Posture Asssessment Hip Observation in Gait Swing High Step Ankle/Foot Observation in Gait Swing Decreased Foot Clearance Ankle/Foot Observation in Gait Stance Flatfoot Contact,Foot Slap Timed Up and Go Test 1. Is the Timed Up and Go test result > yes or = to 12 seconds? 3. Is the Timed Up and Go Test result < no 12 seconds? Outpatient Therapy Assessment Impairments Problems/Impairmments Impaired Strength,Impaired Endurance,Impaired Transfers, Impaired Gait Pattern,Impaired Walking,Impaired Standing, Impaired Stair Climbing,
== END 2022-05-14 09:59 | disposition home or self-care (01) ==
LOC: PT 09:56
PROVIDERS: PCP Family Medicine; Visit Provider Family Medicine
DX: M21.371 Foot drop, right foot (principal); M21.372 Foot drop, left foot; M62.81 Muscle weakness (generalized); R26.9 Unspecified abnormalities of gait and mobility
CPT/HCPCS: 97163